=== PATIENT | female | born 1980 | race African-American/Black ===

== ENCOUNTER 2024-07-06 09:24 | Outpatient (CLI) | payer MEDICAID, SELFPAY ==
--- OUTSIDE RECORDS SUMMARY | 2024-07-06 10:16 | XMS_ITS | Referral Summary ---
Author Organization [facility] Address [address] [place] [address] Care Team Providers Care Director Financial Services Name Role Phone Dylan Kimbrough MD Primary Care Provider Allergies No known active allergies Medications ondansetron ODT (ZOFRAN-ODT) 4 mg disintegrating tablet Dissolve 1 tablet oral every 4 hours as needed for nausea or vomiting. 15 tablet Active Social History Tobacco Use Types Packs/Day Years Used Date Smoking Tobacco: Never Assessed Personal Safety Answer Date Recorded Getting School Help Needed Not on file 06/27 Comments No Sex and Gender Information Value Date Recorded Sex Assigned at Not on file Legal Sex Female 12:55 PM LEAD SYSTEMS DEVELOPER Gender Identity Not on file Sexual Orientation Not on file Last Filed Vital Signs Vital Sign Reading Time Taken Comments Blood Pressure 138/85 03/28/2022 5:30 PM LEAD SYSTEMS DEVELOPER Pulse 94 03/28/2022 5:30 PM LEAD SYSTEMS DEVELOPER Temperature 36.8 C (98.2 F) 03/28/2022 1:06 PM LEAD SYSTEMS DEVELOPER Respiratory Rate 18 03/28/2022 5:30 PM LEAD SYSTEMS DEVELOPER Oxygen Saturation 98% 03/28/2022 5:30 PM LEAD SYSTEMS DEVELOPER Inhaled Oxygen Concentration - - Weight 102.1 kg (225 lb) 03/28/2022 1:06 PM LEAD SYSTEMS DEVELOPER Height 165.1 cm (5' 5 ) 03/28/2022 1:06 PM LEAD SYSTEMS DEVELOPER Body Mass Index 37.44 03/28/2022 1:06 PM LEAD SYSTEMS DEVELOPER Plan of Treatment Not on file Procedures Procedure Name Priority Date/Time Associated Diagnosis Comments HEPATITIS PANEL, ACUTE STAT 03/28/2022 4:02 PM LEAD SYSTEMS DEVELOPER from Last 3 Months or Most Recently Relevant to Health Maintenance Results * Hepatitis panel, acute (03/28/2022 4:02 PM LEAD SYSTEMS DEVELOPER) Hep A IgM Nonreactive Nonreactive [facility] Comment: Interpretive Data: If Hep A IgM Ab is reported as Equivocal, a new sample should be drawn in two weeks for testing. Current interpretive data was last revised on 19. Hep B core IgM Nonreactive Nonreactive [facility] Comment: Interpretive Data If HepB Core IgM Ab is reported as Equivocal, a new sample should be drawn in two weeks for testing. Current interpretive data was last revised on 19. Hep C Ab Nonreactive Nonreactive [facility] Comment: Interpretive Data Nonreactive: Antibodies to HCV not detected. Does NOT exclude the possibility of recent exposure to HCV. Equivocal: Equivocal for HCV antibodies. Supplemental molecular testing will be automatically performed to determine infection status in accordance with current CDC screening recommendations. Reactive: Positive for HCV antibodies. This may represent current or past HCV infection. Supplemental molecular testing will be automatically performed to determine current infection status in accordance with current CDC screening recommendations. Interpretive data was last revised on 2019. HepBsAg Nonreactive Nonreactive [facility] Blood 03/28/2022 4:02 PM LEAD SYSTEMS DEVELOPER 03/28/2022 4:30 PM LEAD SYSTEMS DEVELOPER Rafal Woody MD LAB MICROBIOLOGY - GENERAL ORDERABLES Final Result [facility] [address] Department [place] [address] from Last 3 Months or Most Recently Relevant to Health Maintenance Insurance [employer] SIG [id number] Care Teams Director Financial Services Relationship Specialty Start Date End Date Dylan Kimbrough MD [address] [place] [id number] PCP - General Internal Medicine 03/28/22
--- OUTSIDE RECORDS SUMMARY | 2024-07-06 10:16 | XMS_ITS | Clinical Summary ---
Author Organization [facility] Address [address] [place] [address] Care Team Providers Care Manager Fine Dining Name Role Phone Dylan Kimbrough MD Primary [...] on file Legal Sex Female 12:55 PM LIVE HANGER Gender Identity Not on file Sexual Orientation Not on file Last Filed Vital Signs Vital Sign Reading Time Taken Comments Blood Pressure 138/85 03/28/2022 5:30 PM LIVE HANGER Pulse 94 03/28/2022 5:30 PM LIVE HANGER Temperature 36.8 C (98.2 F) 03/28/2022 1:06 PM LIVE HANGER Respiratory Rate 18 03/28/2022 5:30 PM LIVE HANGER Oxygen Saturation 98% 03/28/2022 5:30 PM LIVE HANGER Inhaled Oxygen Concentration - - Weight 102.1 kg (225 lb) 03/28/2022 1:06 PM LIVE HANGER Height 165.1 cm (5' 5 ) 03/28/2022 1:06 PM LIVE HANGER Body Mass Index 37.44 03/28/2022 1:06 PM LIVE HANGER Plan of Treatment Health Maintenance Due Date Last Done Comments Breast Cancer Screening-Mammogram 1979 Depression Screening 1979 Varicella Vaccines (1 of 2 - 13+ 2-dose series) 07/28/1992 Hepatitis B Screening 07/28/1997 Regular Well Visit/Exam 18-64 07/28/1997 Pneumococcal vaccine <65 (1 of 2 - PCV) 07/28/1998 Covid-19 Vaccine (3 - 2023-2 5 season) 2023 03/17/2022, 08/03/2020 Influenza Vaccine (#1) 2023 , 06/08/2019, 01/23/2015 DTaP/Tdap/Td Vaccine (3 - Td or Tdap) 03/17/2032 03/17/2022, 05/24/2010 Hepatitis C Screening Completed 03/28/2022 HPV Vaccines Aged Out No longer eligi ble based on patient's age to complete this topic Procedures Procedure Name Priority Date/Time Associated Diagnosis Comments HEPATITIS PANEL, ACUTE STAT 03/28/2022 4:02 PM LIVE HANGER from Last 3 Months or Most Recently Relevant to Health Maintenance Results * Hepatitis panel, acute (03/28/2022 4:02 PM LIVE HANGER) Hep A IgM Nonreactive Nonreactive [facility] Comment: Interpretive Data: If Hep A IgM Ab is reported as Equivocal, a new sample should be drawn in two weeks for testing. Current interpretive data was last revised on 19. Hep B core IgM Nonreactive Nonreactive [facility] Comment: Interpretive Data If HepB Core IgM Ab is reported as Equivocal, a new sample should be drawn in two weeks for testing. Current interpretive data was last revised on 19. Hep C Ab Nonreactive Nonreactive [facility] Comment: Interpretive Data Nonreactive: Antibodies to [...] last revised on 2019. HepBsAg Nonreactive Nonreactive [facility] Blood 03/28/2022 4:02 PM LIVE HANGER 03/28/2022 4:30 PM LIVE HANGER Rafal Woody MD LAB MICROBIOLOGY - GENERAL ORDERABLES Final Result [facility] [address] Department [place] [address] from Last 3 Months or Most Recently Relevant to Health Maintenance Insurance [employer] SIG [id number] Care Teams Manager Fine Dining Relationship Specialty Start Date End Date Dylan Kimbrough MD [address] [place] [address] PCP - General Internal Medicine 03/28/22
--- OUTSIDE RECORDS SUMMARY | 2024-07-06 10:17 | XMS_ITS | Data Portability ---
Author Organization 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 Plan of Treatment Reminders Order Date Submit Date Provider Last Modified By Organization Details Last Modified Time Details Appointments ANY 15 2024 02:15P M Dylan Kimbrough MD Not available Not available Not available Lab vaginal pathogens panel, FABI+probe , vaginal fluid 2024 025 KENDRICK [facility], [address], [place], [address], 06/28/2024 06:18:02 culture, urine 2024 025 [place], [address], [place], [address], 06/28/2024 06:18:03 urinalysi s, dipstick 2024 025 In-Office Order, Internal Use Only DO Not Attach Compendium DO Not Attach Compendium, Do Not Delete/merge, [id number] 06/23/2024 16:05:21 lipoprote in a, qn, serum 2024 025 [facility], [address], [place], [address], 05/23/2024 17:09:14 HbA1c (hemoglob in A1c), blood 2024 025 [facility], [address], [place], [address], 05/23/2024 17:09:15 HbA1c (hemoglob in A1c), blood 2023 024 [facility], [address], [place], [address], 02/20/2024 08:27:36 vitamin B12, serum 2023 024 [facility], [address], [place], [address], 02/20/2024 08:27:37 vaginal pathogens panel, FABI+probe , vaginal fluid 2023 024 [facility], [address], [place], [address], 01/09/2024 08:32:47 vaginal pathogens panel, FABI+probe , vaginal fluid 2023 024 [facility], [address], [place], [address], 10/11/2023 06:42:23 Referral nutrition ist/dieti gaudencio referral 2024 025 [facility] Computer Animator Nutrition Dietitian, [address], [place], [address], 05/26/2024 16:43:10 gastroent erologist referral 2023 024 KENDRICK Mansfield MD, [address], [place], [address], 06/29/2024 09:04:18 Procedures None recorded. Surgeries None recorded. Imaging electromy ogram + nerve conductio n study 2023 024 [facility]), [address], [place], [address], 06/14/2024 13:54:55 MAMMO, diagnosti c, digital, bilateral - Unilatera l to right breast 2023 024 [facility] ([facility]), [address] [place], [address], 02/10/2024 11:22:06 US, breast, unilatera l - Small mass palpated at 6 o'clock position, measuring about 1cm in diameter. Minimal tendernes s on palpation . [email or web address] ([facility]), [address] [place], [address], 02/11/2024 08:45:03 Medication Orders metronida zole 0.75 % (37.5 mg/5 gram) vaginal gel 2024 025 [id number], [address], [place], [id number], 06/23/2024 16:05:29 amlodipin e 2.5 mg tablet 2024 025 [facility] #51400, [address], [place], [id number], 05/20/2024 10:35:37 hydrochlo rothiazid e 25 mg tablet 2024 025 [facility] #05395, [address], [place], [id number], 05/20/2024 10:35:35 metronida zole 500 mg tablet 2023 024 [facility] #98353, [address], [place], [id number], 02/19/2024 11:35:15 metronida zole 500 mg tablet 2023 024 nidhi [facility] #36833, [address], [place], [id number], 02/19/2024 11:35:05 estradiol 0.01% (0.1 mg/gram) vaginal cream 2023 024 KENDRICK [facility] #38627, [address], [place], [id number], 10/08/2023 13:18:29 Patient TargetsNo targets recorded. Patient Instructions Encounter Date Encounter Id Patient Instructions Last Modified By Organization Details Last Modified Time 10/08/2023 [id number] A healthy lifestyle: care instructions [email or web address] Not available 10/08/2023 13:18:22 --Discussed with Dr. Payton burger Not available 10/19/2023 19:58:44 01/07/2024 [id number] A healthy lifestyle: care instructions [email or web address] Not available 01/07/2024 11:37:[address] Payton burger Not available 01/07/2024 22:56:14 02/19/2024 [id number] body mass index: care instructions [email or web address] Not available 02/19/2024 12:08:58 learning about healthy weight oajao Not available 02/19/2024 12:08:58 neuropathic pain : care instructions oajao Not available 02/19/2024 12:04:52 GI EMG/NCS Labs (Old and new orders) Follow up in 6 months and PRN oajao Not available 02/19/2024 13:27:46 05/20/2024 [id number] body mass index: care instructions oajao Not available 05/20/2024 10:40:14 learning about healthy weight oajao Not available 05/20/2024 10:40:14 Labs Nutritionis t GI follow up for Hepatic steatosis follow up in 6 months and PRN oajao Not available 05/20/2024 14:08:15 06/23/2024 [id number] A healthy lifestyle: care instructions [email or web address] Not available 06/23/2024 16:05:21 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 Referral for Chronic constipation Chronic constipation, HECTOR Referring Physician: Dylan Kimbrough, Internal Medicine, Encounter Date: 02/19/2024 Shipyard Supervisor/dietitian Refer ral for Body mass index 30+ - obesity Referring Physician: Dylan Kimbrough, Internal Medicine, Encounter Date: 05/20/2024 Results Created Date Observation Date Name Description Value Unit Range Abnormal Flag Note LastModifiedBy Organization Detail LastModifiedTime 10/02/19 24 10/03/2023 LIPID PANEL cholesterol, total 210 mg/dL 100-19 9 above high normal Not Available [facility] ([facility]) [address] [place], [address], 10/03/2023 09:23:43 10/02/19 24 10/03/2023 LIPID PANEL triglyceride s 101 mg/dL 0-149 Not Available [facility] ([facility]) [address] [place], [address], 10/03/2023 09:23:43 10/02/19 24 10/03/2023 LIPID PANEL HDL cholesterol 55 mg/dL >39 Not Available [facility] ([facility]) [address] [place], [address], 10/03/2023 09:23:43 10/02/19 24 10/03/2023 LIPID PANEL VLDL cholesterol roc 18 mg/dL 5-40 Not Available [facility] ([facility]) [address] [place], [address], 10/03/2023 09:23:43 10/02/19 24 10/03/2023 LIPID PANEL LDL chol calc ([facility]) 137 mg/dL 0-99 above high normal Not Available [facility] ([facility]) [address] [place], [address], 10/03/2023 09:23:43 10/02/19 24 10/03/2023 COMP. METAB OLIC PANEL (14) glucose 83 mg/dL 70-99 Not Available [facility] ([facility]) [address] [place], [address], 10/03/2023 09:23:45 10/02/19 24 10/03/2023 COMP. METAB OLIC PANEL (14) BUN 10 mg/dL 6-24 Not Available [facility] ([facility]) [address] [facility], [address], 10/03/2023 09:23:45 10/02/19 24 10/03/2023 COMP. METAB OLIC PANEL (14) creatinine 0.91 mg/dL 0.57-1 .00 Not Available [facility] ([facility]) [address] [facility] [place], [address], 10/03/2023 09:23:45 10/02/19 24 10/03/2023 COMP. METAB OLIC PANEL (14) eGFR 80 mL/mi n/1.7 3 >59 Not Available [facility] ([facility]) [address] [facility] [place], [address], 10/03/2023 09:23:45 10/02/19 24 10/03/2023 COMP. METAB OLIC PANEL (14) BUN/creatini ne ratio 11 9-23 Not Available [facility] ([facility]) [address] [facility] [place], [address], 10/03/2023 09:23:45 10/02/19 24 10/03/2023 COMP. METAB OLIC PANEL (14) sodium 142 mmol/ L 134-14 4 Not Available [facility] ([facility]) [address] [facility] [place], [address], 10/03/2023 09:23:45 10/02/19 24 10/03/2023 COMP. METAB OLIC PANEL (14) potassium 3.8 mmol/ L 3.5-5. 2 Not Available [facility] ([facility]) [address] [facility] [place], [address], 10/03/2023 09:23:45 10/02/19 24 10/03/2023 COMP. METAB OLIC PANEL (14) chloride 106 mmol/ L 96-106 Not Available [facility] ([facility]) [address] [place], [address], 10/03/2023 09:23:45 10/02/19 24 10/03/2023 COMP. METAB OLIC PANEL (14) carbon dioxide, total 23 mmol/ L 20-29 Not Available [facility] ([facility]) [address] [place], [address], 10/03/2023 09:23:45 10/02/19 24 10/03/2023 COMP. METAB OLIC PANEL (14) calcium 8.7 mg/dL 8.7-10 .2 Not Available [facility] ([facility]) [address] [place], [address], 10/03/2023 09:23:45 10/02/19 24 10/03/2023 COMP. METAB OLIC PANEL (14) protein, total 6.3 g/dL 6.0-8. 5 Not Available [facility] ([facility]) [address] [place], [address], 10/03/2023 09:23:45 10/02/19 24 10/03/2023 COMP. METAB OLIC PANEL (14) albumin 3.8 g/dL 3.9-4. 9 below low normal Not Available [facility] ([facility]) [address] [place], [address], 10/03/2023 09:23:45 10/02/19 24 10/03/2023 COMP. METAB OLIC PANEL (14) globulin, total 2.5 g/dL 1.5-4. 5 Not Available [facility] ([facility]) [address] [place], [address], 10/03/2023 09:23:45 10/02/19 24 10/03/2023 COMP. METAB OLIC PANEL (14) A/G ratio 1.5 1.2-2. 2 Not Available [facility] ([facility]) [address] [place], [address], 10/03/2023 09:23:45 10/02/19 24 10/03/2023 COMP. METAB OLIC PANEL (14) bilirubin, total 0.4 mg/dL 0.0-1. 2 Not Available [facility] ([facility]) [address] [place], [address], 10/03/2023 09:23:45 10/02/19 24 10/03/2023 COMP. METAB OLIC PANEL (14) alkaline phosphatase 72 IU/L 44-121 Not Available [facility] ([facility]) [address] [place], [address], 10/03/2023 09:23:45 10/02/19 24 10/03/2023 COMP. METAB OLIC PANEL (14) AST (SGOT) 17 IU/L 0-40 Not Available [facility] ([facility]) [address] [place], [address], 10/03/2023 09:23:45 10/02/19 24 10/03/2023 COMP. METAB OLIC PANEL (14) ALT (SGPT) 18 IU/L 0-32 Not Available [facility] ([facility]) [address] [place], [address], 10/03/2023 09:23:45 10/02/19 24 10/03/2023 IRON AND TIBC iron bind.cap.(TI BC) 290 ug/dL 250-45 0 Not Available [facility] ([facility]) [address] [place], [address], 10/03/2023 09:23:46 10/02/19 24 10/03/2023 IRON AND TIBC UIBC 226 ug/dL 131-42 5 Not Available [facility] ([facility]) [address] [place], [address], 10/03/2023 09:23:46 10/02/19 24 10/03/2023 IRON AND TIBC iron 64 ug/dL 27-159 Not Available [facility] ([facility]) [address] [place], [address], 10/03/2023 09:23:46 10/02/19 24 10/03/2023 IRON AND TIBC iron saturation 22 % 15-55 Not Available [facility] ([facility]) [address] [place], [address], 10/03/2023 09:23:46 10/02/19 24 10/03/2023 EDWIN TIN ferritin 189 NG/mL 15-150 above high normal Not Available [facility] ([facility]) [address] [place], [address], 10/03/2023 09:23:48 10/02/19 24 10/03/2023 CBC WITH DIFFE RENTI AL/PL ATELE T WBC 9.8 x10e3 /uL 3.4-10 .8 Not Available [facility] ([facility]) [address] [place], [address], 10/03/2023 09:23:49 10/02/19 24 10/03/2023 CBC WITH DIFFE RENTI AL/PL ATELE T RBC 4.12 x10e6 /uL 3.77-5 .28 Not Available [facility] ([facility]) [address] [place], [address], 10/03/2023 09:23:49 10/02/19 24 10/03/2023 CBC WITH DIFFE RENTI AL/PL ATELE T hemoglobin 11.6 g/dL 11.1-1 5.9 Not Available [facility] ([facility]) [address] [place], [address], 10/03/2023 09:23:49 10/02/19 24 10/03/2023 CBC WITH DIFFE RENTI AL/PL ATELE T hematocrit 35.8 % 34.0-4 6.6 Not Available [facility] ([facility]) [address] [facility], [place], [address], 10/03/2023 09:23:49 10/02/19 24 10/03/2023 CBC WITH DIFFE RENTI AL/PL ATELE T MCV 87 fL 79-97 Not Available [facility] ([facility]) [address] [facility], [place], [address], 10/03/2023 09:23:49 10/02/19 24 10/03/2023 CBC WITH DIFFE RENTI AL/PL ATELE T MCH 28.2 pg 26.6-3 3.0 Not Available [facility] ([facility]) [address] [facility], [place], [address], 10/03/2023 09:23:49 10/02/19 24 10/03/2023 CBC WITH DIFFE RENTI AL/PL ATELE T MCHC 32.4 g/dL 31.5-3 5.7 Not Available [facility] ([facility]) [address] [facility], [place], [address], 10/03/2023 09:23:49 10/02/19 24 10/03/2023 CBC WITH DIFFE RENTI AL/PL ATELE T RDW 13.5 % 11.7-1 5.4 Not Available [facility] ([facility]) [address] [facility], [place], [address], 10/03/2023 09:23:49 10/02/19 24 10/03/2023 CBC WITH DIFFE RENTI AL/PL ATELE T platelets 323 x10e3 /uL 150-45 0 Not Available [facility] ([facility]) [address] [place], [address], 10/03/2023 09:23:49 10/02/19 24 10/03/2023 CBC WITH DIFFE RENTI AL/PL ATELE T neutrophils 70 % notest ab. Not Available [facility] ([facility]) [address] [facility], [place], [address], 10/03/2023 09:23:49 10/02/19 24 10/03/2023 CBC WITH DIFFE RENTI AL/PL ATELE T lymphs 22 % notest ab. Not Available [facility] ([facility]) [address] [facility], [place], [address], 10/03/2023 09:23:49 10/02/19 24 10/03/2023 CBC WITH DIFFE RENTI AL/PL ATELE T monocytes 5 % notest ab. Not Available [facility] ([facility]) [address] [facility], [place], [address], 10/03/2023 09:23:49 10/02/19 24 10/03/2023 CBC WITH DIFFE RENTI AL/PL ATELE T eos 1 % notest ab. Not Available [facility] ([facility]) [address] [facility], [place], [address], 10/03/2023 09:23:49 10/02/19 24 10/03/2023 CBC WITH DIFFE RENTI AL/PL ATELE T basos 1 % notest ab. Not Available [facility] ([facility]) [address] [facility], [place], [address], 10/03/2023 09:23:49 10/02/19 24 10/03/2023 CBC WITH DIFFE RENTI AL/PL ATELE T neutrophils (absolute) 7.0 x10e3 /uL 1.4-7. 0 Not Available [facility] ([facility]) [address] [facility], [place], [address], 10/03/2023 09:23:49 10/02/19 24 10/03/2023 CBC WITH DIFFE RENTI AL/PL ATELE T lymphs (absolute) 2.2 x10e3 /uL 0.7-3. 1 Not Available [facility] ([facility]) [address] [facility], [place], [address], 10/03/2023 09:23:49 10/02/19 24 10/03/2023 CBC WITH DIFFE RENTI AL/PL ATELE T monocytes(ab solute) 0.5 x10e3 /uL 0.1-0. 9 Not Available [facility] ([facility]) [address] [facility], [place], [address], 10/03/2023 09:23:49 10/02/19 24 10/03/2023 CBC WITH DIFFE RENTI AL/PL ATELE T eos (absolute) 0.1 x10e3 /uL 0.0-0. 4 Not Available [facility] ([facility]) [address] [facility], [place], [address], 10/03/2023 09:23:49 10/02/19 24 10/03/2023 CBC WITH DIFFE RENTI AL/PL ATELE T baso (absolute) 0.1 x10e3 /uL 0.0-0. 2 Not Available [facility] ([facility]) [address] [facility], [place], [address], 10/03/2023 09:23:49 10/02/19 24 10/03/2023 CBC WITH DIFFE RENTI AL/PL ATELE T immature granulocytes 1 % notest ab. Not Available [facility] ([facility]) [address] [place], [address], 10/03/2023 09:23:49 10/02/19 24 10/03/2023 CBC WITH DIFFE RENTI AL/PL ATELE T immature grans (abs) 0.1 x10e3 /uL 0.0-0. 1 Not Available [facility] ([facility]) [address] [place], [address], 10/03/2023 09:23:49 10/08/19 24 10/10/2023 NUSWA B VAGIN ITIS PLUS (VG+) atopobium vaginae HIGH - 2 score abnormal Not Available [facility] ([facility]) [address] [place], [address], 10/11/2023 06:42:22 10/08/19 24 10/10/2023 NUA B VAGIN ITIS PLUS (VG+) bvab 2 LOW - 0 score Not Available [facility] ([facility]) [address] [place], [address], 10/11/2023 06:42:22 10/08/19 24 10/10/2023 NUA B VAGIN ITIS PLUS (VG+) megasphaera 1 LOW - 0 score Calcu late total score by stacia g the 3 indiv idual bacte rial vagin osis (BV) marke r score s toget her. Total score is inter prete d as follo ws: Total score 0-1: Indic ates the absen ce of BV. Total score 2: Indet ermin ate for BV. Addit ional clini roc data shoul d be evalu ated to estab marcelina a diagn osis. Total score 3-6: Indic ates the prese nce of BV. Not Available [facility] ([facility]) [address] [place], [address], 10/11/2023 06:42:22 10/08/19 24 10/10/2023 NUA B VAGIN ITIS PLUS (VG+) kanika albicans, FABI NEGATI VE negati ve Not Available [facility] ([facility]) [address] [place], [address], 10/11/2023 06:42:22 10/08/19 24 10/10/2023 NUA B VAGIN ITIS PLUS (VG+) kanika glabrata, FABI NEGATI VE negati ve Not Available [facility] ([facility]) [address] [place], [address], 10/11/2023 06:42:22 10/08/19 24 10/10/2023 NUA B VAGIN ITIS PLUS (VG+) trich vag by FABI NEGATI VE negati ve Not Available [facility] ([facility]) [address] [facility], [place], [address], 10/11/2023 06:42:22 10/08/19 24 10/10/2023 NUA B VAGIN ITIS PLUS (VG+) chlamydia trachomatis, FABI NEGATI VE negati ve Not Available [facility] ([facility]) [address] [facility], [place], [address], 10/11/2023 06:42:22 10/08/19 24 10/10/2023 NUA B VAGIN ITIS PLUS (VG+) neisseria gonorrhoeae, FABI NEGATI VE negati ve Not Available [facility] ([facility]) [address] [facility], [place], [address], 10/11/2023 06:42:22 01/07/20 24 01/08/2024 NUA B VAGIN ITIS PLUS (VG+) atopobium vaginae LOW - 0 score Not Available [facility] ([facility]) [address] [facility], [place], [address], 01/09/2024 08:32:47 01/07/20 24 01/08/2024 NUA B VAGIN ITIS PLUS (VG+) bvab 2 LOW - 0 score Not Available [facility] ([facility]) [address] [place], [address], 01/09/2024 08:32:47 01/07/20 24 01/08/2024 NUA B VAGIN ITIS PLUS (VG+) megasphaera 1 LOW - 0 score Calcu late total score by stacia rodriguez the 3 indiv idual bacte rial vagin osis (BV) marke r score s toget her. Total score is inter prete d as follo ws: Total score 0-1: Indic ates the absen ce of BV. Total score 2: Indet ermin ate for BV. Addit ional clini roc data shoul d be evalu ated to estab marcelina a diagn osis. Total score 3-6: Indic ates the prese nce of BV. Not Available [facility] ([facility]) [address] [facility], [place], [address], 01/09/2024 08:32:47 01/07/20 24 01/08/2024 NUSWA B VAGIN ITIS PLUS (VG+) kanika albicans, FABI NEGATI VE negati ve Not Available [facility] ([facility]) [address] [place], [address], 01/09/2024 08:32:47 01/07/20 24 01/08/2024 NUSWA B VAGIN ITIS PLUS (VG+) kanika glabrata, FABI NEGATI VE negati ve Not Available [facility] ([facility]) [address] [place], [address], 01/09/2024 08:32:47 01/07/20 24 01/09/2024 NUSWA B VAGIN ITIS PLUS (VG+) trich vag by FABI NEGATI VE negati ve Not Available [facility] ([facility]) [address] [place], [address], 01/09/2024 08:32:47 01/07/20 24 01/09/2024 NUSWA B VAGIN ITIS PLUS (VG+) chlamydia trachomatis, FABI NEGATI VE negati ve Not Available [facility] ([facility]) [address] [place], [address], 01/09/2024 08:32:47 01/07/20 24 01/09/2024 NUSWA B VAGIN ITIS PLUS (VG+) neisseria gonorrhoeae, FABI NEGATI VE negati ve Not Available [facility] ([facility]) [address] [facility], [place], [address], 01/09/2024 08:32:47 02/19/2002/20/2024 HEMOG LOBIN A1C hemoglobin A1C 5.4 % 4.8-5. 6 Predi abete s: 5.7 - 6.4 Diabe chandrika: >6.4 Glyce lin contr ol for adult s with diabe chandrika: <7.0 Not Available [facility] ([facility]) [address] [facility], [place], [address], 02/20/2024 08:27:36 02/19/2002/20/2024 VITAM IN B12 vitamin B12 382 pg/mL 232-12 45 Not Available [facility] ([facility]) [address] [facility], [place], [address], 02/20/2024 08:27:37 02/19/2002/20/2024 LIPID PANEL cholesterol, total 263 mg/dL 100-19 9 above high normal Not Available [facility] ([facility]) [address] [place], [address], 02/20/2024 08:27:39 02/19/2002/20/2024 LIPID PANEL triglyceride s 164 mg/dL 0-149 above high normal Not Available [facility] ([facility]) [address] [place], [address], 02/20/2024 08:27:39 02/19/2002/20/2024 LIPID PANEL HDL cholesterol 62 mg/dL >39 Not Available [facility] ([facility]) [address] [place], [address], 02/20/2024 08:27:39 02/19/2002/20/2024 LIPID PANEL VLDL cholesterol roc 30 mg/dL 5-40 Not Available [facility] ([facility]) [address] [place], [address], 02/20/2024 08:27:39 02/19/2002/20/2024 LIPID PANEL LDL chol calc ([facility]) 171 mg/dL 0-99 above high normal Not Available [facility] ([facility]) [address] [place], [address], 02/20/2024 08:27:39 02/19/2002/20/2024 BASIC METAB OLIC PANEL (7) glucose 80 mg/dL 70-99 Not Available [facility] ([facility]) [address] [place], [address], 02/20/2024 08:27:40 02/19/2002/20/2024 BASIC METAB OLIC PANEL (7) BUN 11 mg/dL 6-24 Not Available [facility] ([facility]) [address] [place], [address], 02/20/2024 08:27:40 02/19/2002/20/2024 BASIC METAB OLIC PANEL (7) creatinine 0.92 mg/dL 0.57-1 .00 Not Available [facility] ([facility]) [address] [place], [address], 02/20/2024 08:27:40 02/19/2002/20/2024 BASIC METAB OLIC PANEL (7) eGFR 79 mL/mi n/1.7 3 >59 Not Available [facility] ([facility]) [address] [place], [address], 02/20/2024 08:27:40 02/19/2002/20/2024 BASIC METAB OLIC PANEL (7) BUN/creatini ne ratio 12 9-23 Not Available [facility] ([facility]) [address] [place], [address], 02/20/2024 08:27:40 02/19/2002/20/2024 BASIC METAB OLIC PANEL (7) sodium 140 mmol/ L 134-14 4 Not Available [facility] ([facility]) [address] [facility] [place], [address], 02/20/2024 08:27:40 02/19/2002/20/2024 BASIC METAB OLIC PANEL (7) potassium 4.1 mmol/ L 3.5-5. 2 Not Available [facility] ([facility]) [address] [place], [address], 02/20/2024 08:27:40 02/19/2002/20/2024 BASIC METAB OLIC PANEL (7) chloride 103 mmol/ L 96-106 Not Available [facility] ([facility]) [address] [place], [address], 02/20/2024 08:27:40 02/19/2002/20/2024 BASIC METAB OLIC PANEL (7) carbon dioxide, total 25 mmol/ L 20-29 Not Available [facility] ([facility]) [address] [place], [address], 02/20/2024 08:27:40 02/19/2002/20/2024 AST (SGOT ) AST (SGOT) 17 IU/L 0-40 Not Available [facility] ([facility]) [address] [place], [address], 02/20/2024 08:27:41 02/19/2002/20/2024 ALT (SGPT ) ALT (SGPT) 18 IU/L 0-32 Not Available [facility] ([facility]) [address] [place], [address], 02/20/2024 08:27:41 02/19/2002/20/2024 GGT GGT 80 IU/L 0-60 above high normal Not Available [facility] ([facility]) [address] [place], [address], 02/20/2024 08:27:42 02/19/2002/20/2024 TSH TSH 1.210 uIU/m L 0.450- 4.500 Not Available [facility] ([facility]) [address] [place], [address], 02/20/2024 08:27:43 02/19/2002/20/2024 HGB+H CT hemoglobin 13.1 g/dL 11.1-1 5.9 Not Available [facility] ([facility]) [address] [place], [address], 02/20/2024 08:27:43 02/19/2002/20/20[address]GB[address]H [address] hematocrit 40.5 % 34.0-4 6.6 Not Available [facility] ([facility]) [address] [facility], [place], [address], 02/20/2024 08:27:43 05/20/1905/23/2024 LIPOP ROTEI N (A) lipoprotein (A) 156.3 nmol/ L <75.0 above high normal Note: Value s great er than or equal to 75.0 nmol/ L may indic ate an indep enden t risk facto r for CHD, but must be evalu ated with cauti on when appli ed to non-C aucas manjit popul ation s due to the influ ence of susi ic facto rs on Lp(a) acros s ethni citie s. Not Available [facility] ([facility]) [address] [facility], [place], [address], 05/23/2024 17:09:14 05/20/1905/20/2024 HEMOG LOBIN A1C hemoglobin A1C 5.3 % 4.8-5. 6 Predi abete s: 5.7 - 6.4 Diabe chandrika: >6.4 Glyce lin contr ol for adult s with diabe chandrika: <7.0 Not Available [facility] ([facility]) [address] [place], [address], 05/23/2024 17:09:15 06/23/19 25 06/23/2024 urina lysis , dipst ick Leukocytes Negati ve Not Available In-Office Order Internal Use Only DO Not Attach Compendium DO Not Attach Compendium, Do Not Delete/merge, 06/23/2024 16:02:35 06/23/19 25 06/23/2024 urina lysis , dipst ick Nitrite negati ve Not Available In-Office Order Internal Use Only DO Not Attach Compendium DO Not Attach Compendium, Do Not Delete/merge, 06/23/2024 16:02:35 06/23/19 25 06/23/2024 urina lysis , dipst ick Urobilinogen .2 Not Available In-Of fice Order Internal Use Only DO Not Attach Compendium DO Not Attach Compendium, Do Not Delete/merge, 06/23/2024 16:02:35 06/23/19 25 06/23/2024 urina lysis , dipst ick Protein Negati ve Not Available In-Office Order Internal Use Only DO Not Attach Compendium DO Not Attach Compendium, Do Not Delete/merge, 06/23/2024 16:02:35 06/23/19 25 06/23/2024 urina lysis , dipst ick pH 6.0 Not Available In-Office Order Internal Use Only DO Not Attach Compendium DO Not Attach Compendium, Do Not Delete/merge, 06/23/2024 16:02:35 06/23/19 25 06/23/2024 urina lysis , dipst ick Blood Hemoly zed: Trace Not Available In-Office Order Internal Use Only DO Not Attach Compendium DO Not Attach Compendium, Do Not Delete/merge, 06/23/2024 16:02:35 06/23/19 25 06/23/2024 urina lysis , dipst ick Specific [place] 1.020 Not Available In-Off ice Order Internal Use Only DO Not Attach Compendium DO Not Attach Compendium, Do Not Delete/merge, 06/23/2024 16:02:35 06/23/19 25 06/23/2024 urina lysis , dipst ick Ketone Negati ve Not Available In-Office Order Internal Use Only DO Not Attach Compendium DO Not Attach Compendium, Do Not Delete/merge, [id number] 06/23/2024 16:02:35 06/23/19 25 06/23/2024 urina lysis , dipst ick Bilirubin Negati ve Not Available In-Office Order Internal Use Only DO Not Attach Compendium DO Not Attach Compendium, Do Not Delete/merge, 06/23/2024 16:02:35 06/23/19 25 06/23/2024 urina lysis , dipst ick Glucose Negati ve Not Available In-Office Order Internal Use Only DO Not Attach Compendium DO Not Attach Compendium, Do Not Delete/merge, 06/23/2024 16:02:35 06/23/19 25 06/23/2024 urina lysis , dipst ick Appearance Clear Not Available In-Offi ce Order Internal Use Only DO Not Attach Compendium DO Not Attach Compendium, Do Not Delete/merge, 06/23/2024 16:02:35 06/23/19 25 06/23/2024 urina lysis , dipst ick Color Yellow Not Available In-Office Order Internal Use Only DO Not Attach Compendium DO Not Attach Compendium, Do Not Delete/merge, 06/23/2024 16:02:35 02/10/20 24 02/10/2024 MAMMO , diagn ostic , digit al, bilat eral No observ ation record ed. [facility] [address] [place], [address], 02/15/2024 17:50:03 02/10/20 24 02/10/2024 US, breas t, unila teral No observ ation record ed. [facility] [address] [place], [address], 02/15/2024 17:50:03 Result Notes None recorded. 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 Not Available [facility] 3 14:16:15 History of total hysterect luz 593013889 Active 2018 Not Available [facility] 3 14:16:15 Chronic vaginitis 27513398 Active 2018 Not Available [facility] 3 14:16:15 Recurrent bacterial infection 703194090 Active 2018 Not Available [facility] 3 14:16:15 Pulmonary function studies abnormal 715074505 Active 2019 Not Available [facility] 3 14:16:15 Chronic idiopathi c constipat ion 10055895 Active 2020 Not Available [facility] 3 14:16:16 Cough variant asthma 563334108 Active 2021 Not Available [facility] 3 14:16:15 Apnea 6999516 Active 2021 Not Available [facility] 3 14:16:15 SARS-CoV- 2 antigen vaccine declined 8658446561 Active 2022 Not Available [facility] 3 14:16:15 Obstructi ve sleep apnea syndrome 71116388 Active 2022 Dylan Kimbrough MD Attn: Accounting ,[address] [place], [address] , [place] [facility] 3 11:38:39 Essential hypertens ion 16001247 Active 2023 Brandan Carcamo [place] null, [place] [facility] 4 10:39:57 Asthma 264904234 Active 2023 Brandan Carcam[place], [place] [facility] 4 10:39:58 Serum iron below reference range 967517032 Active 2023 Brandan Carcamo [place], [place] [facility] 4 10:39:59 Nonalcoho lic steatohep atitis 965045503 Active 2023 Dylan Kimbrough MD Attn: Accounting ,[address] [place], [address] , [place] [facility] 4 13:27:46 Acute lower urinary tract infection 396587384 Completed 06/01/2019 KEITH Krueger [facility] 0 11:46:16 Vaginitis 17350382 Active Not Available [facility] 3 14:16:15 Bacterial vaginosis 080973459 Active Not Available [facility] 3 14:16:15 Candidias is 22033626 Completed 06/01/2019 KEITH Krueger [facility] 0 11:46:24 Pneumonia 740537665 Completed 06/01/2019 KEITH Krueger [facility] 0 11:46:41 Overweigh t 852933572 Active Not Available [facility] 3 14:16:15 Anemia 961161386 Active Not Available [facility] 3 14:16:15 Disorder of foot 138561504 Active Not Available [facility] 3 14:16:15 Pain of breast 03412977 Completed 06/01/2019 KEITH Krueger [facility] 0 11:46:38 Hyperlipi demia 22320503 Active Not Available [facility] 3 14:16:15 Acute urinary tract infection 567893086 Completed 06/01/2019 KEITH Krueger [facility] 0 11:46:19 Disorder of lipid metabolis m 428619593 Active Not Available [facility] 3 14:16:15 Pruritus of vagina 67247150 Completed 06/01/2019 KEITH Krueger [facility] 0 11:46:47 Infection by Trichomon as 73027984 Active Not Available [facility] 3 14:16:15 Candidias is of vagina 07103057 Active Not Available [facility] 3 14:16:15 Vulvitis 42200756 Active Not Available [facility] 3 14:16:15 Constipat ion 52332837 Completed 06/01/2019 KEITH Krueger [facility] 0 11:46:28 Problem Notes None recorded. Procedures Surgical History Date Name Laterality Status Provider Name and Address Organization Details Recorded Time 06/04/19 23 Date of Last Mammogram completed Dinora Andrews MA [facility] 10/15/2022 15:14:17 06/04/19 23 excision of subcutaneous neoplasm of foot completed Dinora Andrews MA [facility] 10/15/2022 15:12:05 06/26/19 17 Date of Last Pap Smear completed Marlys Pryor MA [facility] 06/25/2016 16:18:44 04/27/19 15 Total hysterectomy completed CHET NUNEZ Attn: Accounting,[address] [facility], [place], [address], [facility] 12/24/2022 12:36:18 04/27/19 11 Tubal Ligation completed Jazmin Gay MA [facility] 08/09/2014 11:59:15 04/27/18 87 Tonsillectomy completed Jazmin Gay MA [facility] 08/09/2014 11:59:15 Imaging Results Imaging Date Name Status LastModified by Organiz ation Details LastModified Time 02/10/2024 MAMMO, diagnostic, digital, bilateral completed [facility] [address] [place], [address], 02/15/2024 17:50:03 02/10/2024 US, breast, unilateral completed [facility] [address] [place], [address], 02/15/2024 17:50:03 Procedure Notes None recorded. Medical Equipment None Reported. Allergies Allergen ID Allergen Name Allergen Category Reaction Reaction Severity Criticality Documentation Date Start Date Code Code System Note Provider Name and Address Organization Details Recorded Time 096909 No known allergy (situatio n) Not available Not available Not available Not available 02/26/2023 20058 6003 SNOMED Not Available Not Available Not Available No known drug allergies Medications Name Sig Start Date Stop Date Status Note LastModified by Organization Details LastModified Time multivita min tablet TAKE 1 TABLET BY MOUTH EVERY DAY 03/12 completed Not Available Not Available Not Available bupropion HCl SR 150 mg tablet,12 hr sustained -release TAKE ONE TABLET BY MOUTH TWICE DAILY 06/15 completed Not Available Not Available Not Available promethaz ine-DM 6.25 mg-15 mg/5 mL oral syrup Take 5 mL every 4 hours by oral route for 7 days. 06/08 completed Not Available Not Available Not Available prednison e 10 mg tablet TAKE 3 TABLETS BY MOUTH EVERY DAY FOR 5 DAYS DIRECTED 07/04 completed Not Available Not Available Not Available doxycycli ne hyclate 100 mg capsule TAKE 1 CAPSULE BY MOUTH TWICE DAILY FOR 10 DAYS 10/06 completed Not Available Not Available Not Available atorvasta tin 20 mg tablet 07/06 completed Not Available Not Available Not Available cetirizin e 10 mg tablet Take 1 tablet every day by oral route. 03/12 completed Not Available Not Available Not Available atorvasta tin 10 mg tablet Take 2 tablets every day by oral route as directed for 30 days. 06/15 completed Not Available Not Available Not Available ibuprofen 800 mg tablet TAKE 1 TABLET BY MOUTH EVERY 6 TO 8 HOURS NEEDED FOR PAIN 10/06 completed Not Available Not Available Not Available fluconazo le 150 mg tablet TAKE 1 TABLET BY MOUTH EVERY DAY FOR 1 DAY 05/20 completed Not Available Not Available Not Available meloxicam 15 mg tablet TAKE 1 TABLET BY MOUTH EVERY DAY 10/01 completed PRN Not Available Not Available Not Available naltrexon e 50 mg tablet Take 1 tablet every day by oral route. 06/15 completed Not Available Not Available Not Available metronida zole 0.75 % (37.5 mg/5 gram) vaginal gel INSERT ONE APPLICAT ORFUL VAGINALL Y AT BEDTIME [id number] active Not Available Not Available No t Available famotidin e 40 mg tablet TAKE ONE-HALF TABLET BY MOUTH EVERY DAY 03/17 completed Not Available Not Available Not Available terconazo le 0.8 % vaginal cream INSERT 1 APPLICAT ORFUL VAGINALL Y EVERY DAY AT BEDTIME FOR 3 DAYS 07/13 completed Not Available Not Available Not Available Cleocin 100 mg vaginal supposito ry INSERT ONE APPLICAT ORFUL VAGINALL Y AT BEDTIME 07/13 completed Not Available Not Available Not Available Zithromax Z-Mike 250 mg tablet TAKE 2 TABLETS (500 MG) BY ORAL ROUTE ONCE DAILY FOR 1 DAY THEN 1 TABLET (250 MG) BY ORAL ROUTE ONCE DAILY FOR 4 DAYS 07/06 completed Not Available Not Available Not Available penicilli n V potassium 500 mg tablet TAKE 1 TABLET BY MOUTH TWICE DAILY FOR 10 DAYS 07/13 completed Not Available Not Available Not Available amlodipin e 2.5 mg tablet TAKE 1 TABLET BY MOUTH EVERY DAY AT BEDTIME FOR HYPERTEN LARRY active Not Available Not Available No t Available metronida zole 500 mg tablet TAKE 1 TABLET BY MOUTH TWICE DAILY FOR 10 DAYS 02/18 completed Not Available Not Available Not Available estradiol -norethin drone acet 1 mg-0.5 mg tablet TAKE 1 TABLET BY MOUTH EVERY DAY 08/06 completed Not Available Not Available Not Available sulfameth oxazole 800 mg-trimet hoprim 160 mg tablet TAKE 1 TABLET BY MOUTH EVERY 12 HOURS FOR 7 DAYS active Not Available Not Available No t Available omeprazol e 40 mg capsule,d elayed release TAKE 1 CAPSULE BY MOUTH EVERY DAY DIRECTED active Not Available Not Available No t Available doxycycli ne monohydra te 100 mg tablet Take 1 tablet twice a day by oral route as directed for 7 days. 08/14 completed Not Available Not Available Not Available triamcino lone acetonide 0.1 % topical cream APPLY A THIN LAYER TO THE AFFECTED AREA(S) BY TOPICAL ROUTE 2 TIMES PER DAY 10/24 completed Not Available Not Available Not Available oxycodone -acetamin ophen 5 mg-325 mg tablet TAKE 1-2 TABLETS BY MOUTH EVERY 4 HOURS NEEDED FOR PAIN 05/20 completed Not Available Not Available Not Available famotidin e 20 mg tablet TAKE 1 TABLET BY MOUTH TWICE DAILY 03/12 completed Not Available Not Available Not Available amitripty line 25 mg tablet TAKE 1 TABLET BY MOUTH EVERY DAY AT BEDTIME 10/01 completed Not Available Not Available Not Available benzonata te 100 mg capsule Take 1 capsule 3 times a day by oral route as needed for 7 days. 04/16 completed Not Available Not Available Not Available doxycycli ne monohydra te 100 mg capsule TAKE 1 CAPSULE BY MOUTH TWICE DAILY FOR 10 DAYS 07/13 completed Not Available Not Available Not Available hydrocodo ne 7.5 mg-acetam inophen 325 mg tablet TAKE 1 TABLET BY MOUTH EVERY 4 HOURS NEEDED FOR PAIN 02/26 completed Not Available Not Available Not Available simvastat in 20 mg tablet Take 1 tablet every day by oral route. 10/24 completed Not Available Not Available Not Available Cipro 500 mg tablet Take 1 tablet every 12 hours by oral route for 10 days. 04/01 completed Not Available Not Available Not Available tobramyci n 0.3 % eye drops 06/15 completed Not Available Not Available Not Available sertralin e 25 mg tablet Take 1 tablet every day by oral route for 30 days. 07/13 completed Not Available Not Available Not Available enoxapari n 150 mg/mL subcutane ous syringe INJECT 1 ML UNDER THE SKIN ONCE DAILY X4DAYS active Not Available Not Available No t Available monteluka st 10 mg tablet TAKE 1 TABLET BY MOUTH EVERY DAY DIRECTED 10/01 completed Not Available Not Available Not Available hydrochlo rothiazid e 25 mg tablet TAKE 1 TABLET BY MOUTH EVERY DAY DIRECTED FOR HYPERTEN LARRY active Not Available Not Available No t Available fluticaso ne 100 mcg-salme terol 50 mcg/dose blistr powdr for inhalatio n INHALE 1 PUFF BY MOUTH TWICE DAILY 10/01 completed Not Available Not Available Not Available levofloxa susan 500 mg tablet 10/24 completed Not Available Not Available Not Available oxycodone -acetamin ophen 7.5 mg-325 mg tablet TAKE 1 TABLET BY MOUTH EVERY 6 HOURS FOR 5 DAYS 05/20 completed Not Available Not Available Not Available estradiol 0.01% (0.1 mg/gram) vaginal cream INSERT 0.5 GRAM VAGINALL Y 2 TIMES A WEEK active Not Available Not Available No t Available methylpre dnisolone 4 mg tablets in a dose pack FOLLOW PACKAGE DIRECTIO NS 10/01 completed Not Available Not Available Not Available albuterol sulfate HFA 90 mcg/actua tion aerosol inhaler INHALE 1 PUFF BY MOUTH EVERY 4 HOURS NEEDED active Not Available Not Available No t Available ipratropi um bromide 42 mcg (0.06 %) nasal spray USE 1 SPRAY IN EACH NOSTRIL FOUR TIMES DAILY NEEDED 10/01 completed Not Available Not Available Not Available ondansetr on 4 mg disintegr ating tablet DISSOLVE 1 TABLET BY MOUTH EVERY 4 HOURS NEEDED FOR NAUSEA OR VOMITTIN G 05/02 completed Not Available Not Available Not Available cefdinir 300 mg capsule TAKE 1 CAPSULE BY MOUTH EVERY 12 HOURS FOR 10 DAYS 10/01 completed Not Available Not Available Not Available fluticaso ne propionat e 50 mcg/actua tion nasal spray,[employer] [place] 1 spray every day by intranas al route for 30 days. 06/08 completed Not Available Not Available Not Available dicyclomi ne 10 mg capsule 10/24 completed Not Available Not Available Not Available loratadin e 10 mg tablet Take 1 tablet every day by oral route for 30 days. 06/08 completed Not Available Not Available Not Available amoxicill in 875 mg-[place] ium clavulana te 125 mg tablet 12/13 completed Not Available Not Available Not Available [place] 500 mg capsule Take 1 capsule every day by oral route at bedtime. 10/24 completed Not Available Not Available Not Available ezetimibe 10 mg tablet TAKE 1 TABLET BY MOUTH EVERY DAY AT BEDTIME active Not Available Not Available No t Available nitrofura ntoin monohydra te/macroc rystals 100 mg capsule TAKE 1 CAPSULE BY MOUTH EVERY 12 HOURS FOR 7 DAYS 07/04 completed Not Available Not Available Not Available lactulose 10 gram/15 mL oral solution active Not Available Not Available Not Available RepHresh vaginal gel Insert 2 g twice a week by vaginal route. 07/06 completed Not Available Not Available Not Available Oysco 500/D 500 mg-5 mcg (200 unit) tablet 04/16 completed Not Available Not Available Not Available hydrochlo rothiazid e 12.5 mg tablet TAKE 1 TABLET BY MOUTH EVERY DAY DIRECTED 07/13 completed Not Available Not Available Not Available Symbicort 160 mcg-4.5 mcg/actua tion HFA aerosol inhaler Inhale 2 puffs twice a day by inhalati on route as directed for 30 days. 04/08 completed Channged to Flu/Durga Not Available Not Available Not Available Calcium with Vitamin D 600 mg-10 mcg (400 unit) tablet Take 1 tablet twice a day by oral route. 03/12 completed Not Available Not Available Not Available vitamin E (dl, acetate) 180 mg (400 unit) capsule Take 1 capsule twice a day by oral route. 10/24 completed Not Available Not Available Not Available RepHresh Pro-B 2.5 billion cell capsule Take 1 capsule every day by oral route. 06/25 completed Not Available Not Available Not Available lactulose 10 gram/15 mL (15 mL) oral solution Take 15 mL every day by oral route. 01/23 completed Not Available Not Available Not Available calcium 600 mg (as carbonate )-vitamin D3 20 mcg (800 unit) tablet Take 1 tablet twice a day by oral route. 07/06 completed Not Available Not Available Not Available Linzess 145 mcg capsule TAKE 1 CAPSULE BY MOUTH EVERY DAY 03/12 completed Not Available Not Available Not Available Phexxi 1.8 %-1 %-0.4 % vaginal gel INSERT 1 APPLICAT OR VAGINALL Y IF NEEDED ONCE EVERY DAY 03/17 completed Not Available Not Available Not Available Vitals Date Recorded Body height Body mass index (BMI) Body weight Oxygen saturation Oxygen saturation in Arterial blood by Pulse oximetry Heart rate Systolic blood pressure Diastolic blood pressure Provider Name and Address Organization Details Last Updated DateTime 4 165.1 cm 36.7 kg/m2 928062. 84 g 96 % 96 % 76 /min 124 mm[Hg] 78 mm[Hg] Sanjuanita Smart [place] [facility] 4 12:52:37 Date Recorded Body height Body mass index (BMI) Body weight Oxygen saturation Oxygen saturation in Arterial blood by Pulse oximetry Heart rate Systolic blood pressure Diastolic blood pressure Provider Name and Address Organization Details Last Updated DateTime 4 165.1 cm 37.2 kg/m2 324896. 97 g 97 % 97 % 90 /min 128 mm[Hg] 82 mm[Hg] Sanjuanita Smart [place] [facility] 4 10:57:11 Date Recorded Body height Body mass index (BMI) Body weight Heart rate Respiratory rate Oxygen saturation Oxygen saturation in Arterial blood by Pulse oximetry Systolic blood pressure Diastolic blood pressure Provider Name and Address Organization Details Last Updated DateTime 4 165.1 cm 37.9 kg/m2 328673. 06 g 84 /min 16 /min 97 % 97 % 114 mm[Hg] 84 mm[Hg] Arlyn Stephens MA [facility] 4 11:37:49 Date Recorded Body height Body mass index (BMI) Body weight Heart rate Oxygen saturation Oxygen saturation in Arterial blood by Pulse oximetry Respiratory rate Systolic blood pressure Diastolic blood pressure Provider Name and Address Organization Details Last Updated DateTime 5 165.1 cm 38.5 kg/m2 945697. 2 g 98 /min 98 % 98 % 14 /min 126 mm[Hg] 90 mm[Hg] Arlyn Stephens MA [facility] 5 10:03:27 Date Recorded Systolic blood pressure Diastolic blood pressure Provider Name and Address Organization Details Last Updated DateTime 05/20/2024 110 mm[Hg] 80 mm[Hg] Dylan Kimbrough MD Attn: Accounting,[address] [place], [address], [facility] 05/20/2024 10:33:38 Date Recorded Body height Body mass index (BMI) Body weight Body temperature Oxygen saturation Oxygen saturation in Arterial blood by Pulse oximetry Heart rate Systolic blood pressure Diastolic blood pressure Provider Name and Address Organization Details Last Updated DateTime 5 165.1 cm 38.8 kg/m2 986057. 37 g 98.3 [degF] 98 % 98 % 76 /min 120 mm[Hg] 84 mm[Hg] Katheryn Richardson [facility] 5 15:44:44 Social History Question Answer Notes LastModified by Organizat ion Details LastModified Time Tobacco Smoking Status Never Smoker Jazmin Gay MA null, [facility] 08/09/2014 11:59:15 Do You Have An Advance Directive? No Information not available 08/06/2015 What Is Your Level Of Alcohol Consumption? Occasional Information not available 08/06/2015 Are You Blind Or Do You Have Difficulty Seeing? No Information not available 10/02/2023 Is Blood Transfusion Acceptable In An Emergency? Yes Information not available 08/06/2015 What Is Your Level Of Caffeine Consumption? Heavy Information not available 08/06/2015 How Much Tobacco Do You Chew? None Information not available 08/06/2015 In The 14 Days Before Symptom Onset, Have You Had Close Contact With A Laboratory-confir med COVID-19 While That Case Was Ill? No Information not available 07/02/2022 In The 14 Days Before Symptom Onset, Have You Had Close Contact With A Person Who Is Under Investigation For COVID-19 While That Person Was Ill? No Information not available 07/02/2022 Have You Been To An Area Known To Be High Risk For COVID-19? No Information not available 07/02/2022 Are You Currently Employed? Yes Information not available 08/06/2015 Are You Deaf Or Do You Have Serious Difficulty Hearing? No Information not available 10/02/2023 What Type Of Diet Are You Following? REGULAR Information not available 08/06/2015 Which Illicit Or Recreational Drugs Have You Used? None Information not available 08/06/2015 Do You Or Have You Ever Used E-cigarettes Or Vape? 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 With Others Information not available 08/06/2015 Do You Have A Medical Power Of Cardiac Cath Technician? No [email or web address] Information not available 04/30/2022 What Was The Date Of Your Most Recent Tobacco Screening? 06/23/2024 [email or web address] Information not available 06/23/2024 How Many Children Do You Have? 3 Information not available 08/06/2015 Performs Monthly Self-breast Exam? Yes Information no t available 08/06/2015 Do You Use Protection During Sex? Always Information not available 08/06/2015 What Is Your Relationship Status? Single Information not available 08/06/2015 Do You Use Your Seat Belt Or Car Seat Routinely? Yes Information not available 10/02/2023 Seat Belts Used Routinely Yes Information not available 08/06/2015 Are You Sexually Active? Yes Information not available 08/06/2015 Do You Have Smoke And Carbon Monoxide Detectors In Your Home? Yes Information not available 03/12/2022 Are You Passively Exposed To Smoke? No Information no t available 03/12/2022 Do You Or Have You Ever Used Smokeless Tobacco? Never Used Smokeless Tobacco Information not available 06/01/2019 How Much Tobacco Do You Smoke? No [email or web address] Information not available 06/25/2016 General Stress Level Low Information not available 08/06/2015 Do You Feel Stressed (tense, Restless, Nervous, Or Anxious, Or Unable To Sleep At Night)? [id number] Information not available 10/02/2023 Do You Use Any Illicit Or Recreational Drugs? Yes Information not available 10/15/2022 Do You Use Sunscreen Routinely? No Information not available 08/06/2015 Has Tobacco Cessation Counseling Been Provided? Yes Information not available 10/15/2022 On What Date Was Tobacco Cessation Counseling Provided? 10/02/2023 Information not available 10/02/2023 How Many Years Have You Smoked Tobacco? 0 [email or web address] Information not available 06/25/2016 Do You Or Have You Ever Used Any Other Forms Of Tobacco Or Nicotine? No Information not available 03/12/2022 Sex: Female Functional Status Question Answer Note LastModified by Organization D etails LastModified Time Are you able to care for yourself? Yes Information n ot available 10/02/2023 What is your exercise level? None Information not available 08/06/2015 Mental Status None recorded. Family History Relationship Description Onset Age of this Age Resolved Age Notes LastModified by Organization Details LastModified Time Maternal Grandmother Malignant tumor of breast mwasserman Not available 01/01 19:37:21 Paternal Grandfather Malignant tumor of lung mwasserman Not available 01/01 19:37:21 Paternal Grandfather Hypertensive disorder mwasserman Not available 01/01 19:37:21 Father Hypertensive disorder mwasserman Not available 01/01 19:37:21 Paternal Uncle Hypertensive disorder mwasserman Not available 01/01 19:37:21 Paternal Grandmother Hypertensive disorder mwasserman Not available 01/01 19:37:21 Medical History Condition Response Heart Problems N Other N High Blood Pressure N Breast Cancer N Thyroid Problems N Kidney or Bladder Problems N GI Problems N Lung Disease N Depression N Blood Clots N Acne N Breast Problem N Eating Disorder N Anemia Y Anesthesia Complications N Headaches/Migraines N Anxiety Disorder N Diabetes N Ovarian Cancer N Muscle, Joint, or Bone Problems N Blood Transfusions N Arthritis N Seizures/Epilepsy N Polyps N Infertility N Acid Reflux (GERD) Y Cancer N Stroke N Abuse/Domestic Violence N Asthma Y Endometriosis N High Cholesterol Y Hepatitis N Liver Disease N Heart Disease N Fibromyalgia N Pre-Eclampsia N Hypertension N Osteoporosis N Kidney Disease N Gynecological History Statement/Question Response Abnormal Pap N Date of Last Mammogram 06/04/2022 On BCP's at Conception? N STIs/STDs Y HPV Vaccine N Duration of Flow (days) 0 Age at Menarche 11 Current Control Method Hysterectom y Age at First Child 16 Frequency of Cycle (Q days) 0 Sexually Active? Y Menses Monthly N Date of Last Pap Smear 06/25/2016 Sexual Problems? N LMP Unknown Desired Control Method Hysterectom y Obstetrics History GPAL:G 7 P 3 0 4 3 Type Value Multiple Births 0 Full Term 3 Induced 2 Spontaneous 2 Premature 0 Living 3 Ectopics 0 Total 7 Immunizations Vaccine Type Date Status Note Provider Nam e and Address Organization Details Recorded Time COVID-19 vaccine, vector-nr, rS-Ad26, PF, 0.5 mL 1 completed Not Available [facility] 02/05/2023 14:16:16 Influenza, split virus, quadrivalent, preservative 2 completed Not Available [facility] 02/05/2023 14:16:16 Tdap 2 completed Not Available [facility] 02/05/2023 14:16:16 COVID-19, mRNA, LNP-S, bivalent, PF, 30 mcg/0.3 mL dose 2 completed Not Available [facility] 02/05/2023 14:16:16 Tdap 1 completed Not Available [facility] 02/05/2023 14:16:16 Influenza, split virus, quadrivalent, preservative 0 completed Arlyn Stephens MA [place], [place] - [facility] 06/08/2019 10:57:52 Influenza, split virus, trivalent, preservative 5 completed Not Available [facility] 05/14/2019 02:32:12 Past Encounters Encounter ID Performer Location Encounter Start Date Encounter Closed Date Diagnosis/Indication Diagnosis SNOMED-CT Code Diagnosis ICD10 Code Diagnosis Note [id number] Salazar Baca (ACTUARIAL ASSISTANT) [address] [place] [address] [id number] 08/09/2014 10:37:20 08/09/2014 13:43:07 Acute lower urinary tract infection [id number] Vaginitis 61335274 [id number] MD Keven Lewis (ACTUARIAL ASSISTANT) [address] [place] [address] [id number] 0 01/04/2015 15:50:21 01/04/2015 16:45:10 Vaginitis 34301866 Constipation 28151254 Vulvitis 69205187 [id number] Omayra Chris Baca (Adult Med) [address] [place] [address] [id number] [id number] 01/23/2015 15:04:43 01/23/2015 17:12:23 Pneumonia 435758999 34 y/o BF who was last seen in this office 04/12/2012 , she was in the ER with constipati on 01/16/2015. She was diagnosed with Pneumonia and constipati on. She should complete the course of levofloxac in and repeat a CXR in ~5-6 weeks to document resolution . Constipation 28561398 He r symptoms started after her robotic VIBHA for fibroids in July 2014 An appropriat e diet was discussed in detail. I think she should continue with daily fiber and read the printed informatio n about an appropriat e diet. GI for evaluation regarding the need for a colonoscop y. General ex amination of patient 609410214 Overweight 657160221 Anemia 602806472 History of SS trait Disorder of foot 242845997 This will be explored on her next visit [id number] Salazar Baca (ACTUARIAL ASSISTANT) [address] [place] [address] 15835-028 0 08/06/2015 11:06:51 08/06/2015 15:07:23 Vaginitis 70350544 N76.0 Bacterial vaginosis 4197 31212 N76.0 Pain of breast 88084679 N64.4 [id number] MD Keven Lewis (Adult Med) [address] [place] [address] [id number] 0 10/25/2015 15:28:29 10/25/2015 18:04:57 Acute urinary tract infection 759862760 N39.0 Constipation 74674930 K5 9.00 GI evaluation needed as she was previously referred. Disorder o f lipid metabolism 188672317 E78.9 Discussed, she apparently was not fasting when her labs were drawn, she was also started on Simvastati n by Dr. Amezcua, and she has not been compliant. I have discussed this with her in detail, she should start a low CHO, low saturated fat diet and repeat her labs in 6 weeks. Pneumonia 392219413 J18. 9 Follow up CXR still needed. [id number] BRYANNA Pickard (Adult Med) [address] [place] [address] 91014-236 0 12/14/2015 08:59:49 12/14/2015 10:05:04 Pruritus of vagina 37003671 L29.3 UA negative - discussed with patient that we will await Nuswab results Advised to drink 2-3 liters of water/day and stay away from sugary drinks Overweight 939799635 E66 .3 Advised to use imo.im al to track her calories Advised to exercise 30 minutes/da y 5 days/week [id number] Salazar Baca (ACTUARIAL ASSISTANT) [address] [place] [address] [id number] 0 01/02/2016 12:10:25 01/02/2016 19:38:16 Candidiasis of vagina 59785243 B37.3 KANIKA GLABRATA RESISTANT TO FLUCONAZOL E. SENSITIVE TO TERCONAZOL E Candidiasis 13732371 B37 .9 [id number] Salazar Baca (ACTUARIAL ASSISTANT) [address] [place] [address] [id number] 02/28/2016 10:06:45 02/28/2016 21:48:56 Vaginitis 07002843 N76.0 Constipation 74956437 K5 9.04 [id number] Salazar Baca (ACTUARIAL ASSISTANT) [address] [place] [address] [id number] 0 06/25/2016 15:53:53 06/26/2016 15:33:47 Candidiasis of vagina 37186660 B37.3 KANIKA GLABRATA RESISTANT TO FLUCONAZOL E. SENSITIVE TO TERCONAZOL E Vulvitis 21104409 N76.2 soap induced (excess scrubbing) [id number] Salazar Baca (ACTUARIAL ASSISTANT) [address] [place] [address] 53029-451 0 11/11/2016 14:40:11 11/11/2016 17:00:45 Bacterial vaginosis 952279080 N76.0 Obesity 763546671 E66.9 Candidiasis of vagina 72 787177 B37.3 KANIKA GLABRATA RESISTANT TO FLUCONAZOL E. SENSITIVE TO TERCONAZOL E Family karina nning surveillance 238860165 Z30.09 [id number] Salazar Amezcua [facility] (ACTUARIAL ASSISTANT) [address] [place] [address] [id number] 04/28/2017 11:16:46 04/28/2017 13:51:07 Vaginitis 26976333 N76.0 Vulvitis 90120968 N76.2 soap induced (excess scrubbing) Family karina nning surveillance 536758261 Z30.09 Exposure t o sexually transmissible disorder 842126989 Z20.2 [id number] Salazar Amezcua [facility] (ACTUARIAL ASSISTANT) [address] [place] [address] [id number] 0 06/15/2017 11:12:11 06/15/2017 13:36:47 Acute urinary tract infection 421119046 N39.0 Bacterial vaginosis 4197 81892 N76.0 Acute lowe r urinary tract infection 375074029 N39.0 Candidiasis of vagina 72 977114 B37.3 KANIKA GLABRATA RESISTANT TO FLUCONAZOL E. SENSITIVE TO TERCONAZOL E Family karina nning surveillance 004414734 Z30.09 Vaginitis 04516753 N76.0 [id number] Salazar Amezcua [facility] (ACTUARIAL ASSISTANT) [address] [place] [address] [id number] 0 09/24/2017 14:11:28 09/28/2017 12:24:02 Urinary tract infectious disease 27908754 N39.0 history of staph UTI 06/15/17 and +GBS Family karina nning surveillance 132888931 Z30.09 Acute lowe r urinary tract infection 118592055 N39.0 staph Urethritis 43041486 N34. 2 [id number] Salazar Baca (ACTUARIAL ASSISTANT) [address] [place] [address] [id number] 0 04/01/2018 16:18:42 04/02/2018 11:44:32 Vaginal discharge 885820025 N89.8 Bacterial vaginosis [address] reptococcus carrier 0166744813 103 Z22.985 [id number] Salazar Baca (ACTUARIAL ASSISTANT) [address] [place] [address] 84515-555 0 07/06/2018 15:40:12 07/06/2018 17:09:46 Recurrent bacterial infection 751080156 A49.[address] reptococcus carrier 1369878363 103 Z22.330 Exposure t o sexually transmissible disorder 755671894 Z20.2 Chronic vaginitis 206772 08 N76.1 recommend H2O2, vinegar and water, or betadine douche. H202 preferred method. History of total hysterectomy 299362120 Z90.710 still has ovaries but absent uterus and cervix [id number] JULIO Cantor (Adult Med) [address] [place] [address] [id number] 0 10/06/2018 11:02:33 10/07/2018 12:35:14 Dry cough 63313324 R05 Seasonal a llergic rhinitis 186208349 J30.2 [id number] CHET GALDAMEZ (ACTUARIAL ASSISTANT) [address] [place] [address] [id number] 0 11/16/2018 16:06:49 11/23/2018 16:14:03 Venereal disease screening 920811379 Z11.3 Gynecologi c examination 25070402 Z01.419 History of total hysterectomy 139531553 Z90.710 04/2013 Chronic vaginitis 024883 08 N76.1 Pt with vaginal itching x years. Has been off and on medication s for bacterial vaginosis and yeast infections . Pt reports h/o hysterecto my and bilateral salpingo-o ophorectom y and on speculum exam pt has dry mucosa and tiny tears with minor bleeding at the base of vagina. No discharge present. I suspect she has the early stages of atrophic vaginitis which is causing discomfort and itching. I discussed this patient and recommende d that she discontinu e all antibiotic s/antifung als and try OTC vaginal moisturize rs. I provided pt with a list of moisturize rs to try. I counseled pt on avoiding harsh soaps/douc hes/etc as this may be complicati ng the picture and causing further dryness. Pt voiced understand ing and is agreeable with plan. [id number] Salazar Baca (ACTUARIAL ASSISTANT) [address] [place] [address] 58226-382 0 06/01/2019 11:17:16 06/02/2019 10:27:28 Bacterial vaginosis 830713290 N76.0 hx of bv Exposure t o sexually transmissible disorder 252127840 Z20.2 Posterior rhinorrhea 758 76685 R09.82 Family karina nning surveillance 426212768 Z30.09 Premature ovarian failure 869951722 E28.39 [id number] MD Keven Lewis (Adult Med) [address] [place] [address] 89565-921 0 06/08/2019 10:04:25 06/08/2019 10:58:04 General examination of patient 714982719 Z00.01 Administra tion of influenza vaccine 25968778 Z23 Gastroesop hageal reflux disease 923120914 K21.9 Chronic cough 89997820 R 05 Asthma?All ergies? Weight gain 2751013 R63. 5 Cervical radiculopathy 57013399 M54.12 Screening for malignant neoplasm of breast 042980369 Z12.39 History of total hysterectomy 002291936 Z90.611 [id number] MD Keven Lewis (Adult Med) [address] [place] [address] 23832-232 0 07/21/2019 08:55:27 07/22/2019 11:24:21 Degeneration of thoracic intervertebral disc 03287624 M51.34 Discussed Degenerati on of cervical intervertebral disc 18944658 M50.30 Discussed [id number] MD Keven Lewis (Adult Med) [address] [place] [address] 00289-042 0 07/27/2019 12:21:01 2019 10:14:22 Chronic cough 24866207 R05 Asthma?All ergies?DAY D?Her CXR was normalSpir ometryPulm onologist to see [id number] MD Keven Lewis (Adult Med) [address] [place] [address] [id number] 0 08/15/2019 12:11:04 08/18/2019 10:42:57 Pulmonary function studies abnormal 320837696 R94.2 Mild obstructio n noted Pulmonolog y opinion is pending Follow up [id number] CHET NUNEZ (Adult Med) [address] [place] [address] [id number] 0 04/16/2020 08:46:43 04/17/2020 09:40:29 Vaginitis 25648471 N76.0 Reports vaginal irritation x 1 week. Noted new pink substance with wiping. Used bath and body works soap last week in which she noticed irritation after. Patient is sexually active with 1 partner and she last had intercours e 3 weeks ago. Hx of chronic vaginitis. Previously prescribed estradiol cream and terconazol e vaginal cream with relief. Currently taking HT chronic vaginitis. When seen by Malka a year ago minor tears were noted in the vaginal canal. Denies vaginal discharge, abnormal vaginal bleeding, dysuria, pelvic pain, fevers, chills.-Av oid intercours e fora week and d/c use of scented products-P rescribed terconazol e vaginal cream to cover for kanika glabrata- encouraged to machine operator picker refill on estrogen cream -F/u with in person visit if there is no improvemen t [id number] Salazar Baca (ACTUARIAL ASSISTANT) [address] [place] [address] [id number] 0 08/02/2020 12:15:25 08/03/2020 11:02:08 History of total hysterectomy 107304196 Z90.710 still has ovaries but absent uterus and cervix Chronic vaginitis 610885 08 N76.1 recommend H2O2, vinegar and water, or betadine douche. H202 preferred method. Exposure t o sexually transmissible disorder 885935443 Z20.2 Venereal d isease screening 131573493 Z11.3 Chronic id iopathic constipation 39539471 K59.04 Screening mammography 24 107827 Z12.31 [id number] CHET GALDAMEZ (ACTUARIAL ASSISTANT) [address] [place] [address] 67159-294 0 07/04/2021 15:55:38 07/22/2021 12:43:07 Acute vaginitis 55716233 N76.0 Patient reports internal vaginal irritation with spotting and odor x3 weeks. No new sexual partner or concern for STDs. PE demonstrat es thin white discharge within the vagina c/w bacterial infection. Swab taken and empiric abx started. Wear loose cotton clothing. Do not wear nylon or other fabric that holds body heat and moisture close to the skin. Do not scratch. Relieve itching with a cold pack or a cool bath. Do not wash your vaginal area more than once a day. Use plain water or a mild, unscented soap. Use condoms to prevent STIs. [id number] CHET GALDAMEZ (ACTUARIAL ASSISTANT) [address] [place] [address] 72158-836 0 08/06/2021 12:09:04 08/12/2021 12:57:53 Subacute and chronic vaginitis 230797775 N76.1 PE with mild white, nonodorous discharge; otherwise unremarkab le. Nuswab completed in clinic today will further treat pending results. Counseled pt to begin Metrogel 1 applicator every night for five nights. After completion of this, proceed to one applicator at bed time 2-3 times a week for 6 months. Chronic treatment indicated due to chronic vaginal irritation and pH imbalance with positive cultures for BV. Educated on benefits of boric acid suppositor ies in those with recurrent BV infections and pH imbalances . Educated on continued use of unscented soaps, loose cotton clothing, washing the vagina once a day with mild soap and water. Follow up in 6 mo. and prn. History of sexually transmitted disease 863837015 Z86.19 Positive for trich 07/05/21 for which she has completed treatment, partner as well. Retesting today due to persistent vaginal irritation . Safe sex practices discussed. [id number] CHET GALDAMEZ (ACTUARIAL ASSISTANT) [address] [place] [address] 27248-591 0 03/12/2022 16:35:07 03/19/2022 08:27:22 Malodorous urine 168665322 R82.998 Patient has malodorous urine without dysuria or other irritative voiding symptoms. On exam, there is no suprapubic tenderness or CVA tenderness . UA resulted with trace blood and leukocytes . Will send for culture and treat pending results. Recent A1c wnl. Advised pt to monitor diet and look for any correlatio n of certain foods with her symptoms and stay hydrated. Return as needed. Screening for malignant neoplasm of breast 381521788 Z12.31 Due for mammogram, ordered. Normal CBE Gynecologi c examination 73325976 Z01.419 Cervical cancer screening: na s/p TLHSTI screening: declined.D iet/exerci se: Counseled regarding importance of physical activity, healthy diet and appropriat e calcium intake.RTC in 1yr Administra tion of influenza vaccine 21232457 Z23 Annual flu shot administer ed today [id number] MD Keven Lewis (Adult Med) [address] [place] [address] 84020-609 0 03/17/2022 11:34:32 03/18/2022 12:09:46 Administration of diphtheria, pertussis, and tetanus vaccine 046677961 Z23 Cough variant asthma 409 828117 J45.991 Unintentio nal weight gain 3476930176 74459 R63.5 General ex amination of patient 352142980 Z00.01 Disorder o f lipid metabolism 975129491 E78.9 . Body mass index 30+ - obesity 354323169 Z68.37 Gastroesop hageal reflux disease 405151741 K21.9 Benign ess ential hypertension 4757271 I10 Pain in left foot 292393 3541 88391 M79.672 Apnea 5860130 R06.81 [id number] LUCIANO Kirby (Peds) [address] [place] [address] 77046-740 0 03/17/2022 13:56:32 03/18/2022 14:29:51 Administration of SARS-CoV-2 mRNA vaccine 7040667551 Z23 [id number] MD Keven Lewis (Adult Med) [address] [place] [address] 84975-419 0 04/08/2022 15:23:40 04/09/2022 12:22:43 Benign essential hypertension 4726070 I10 Start Amlodipine , detailed discussion on the side effects including but not limited to edema, dizziness and a headache.S he cannot tolerate HCTZ, I have told her to discuss her concern about the recall with her pharmacist . I doubt that she was given a recalled Lot number.She has asked for a diuretic, a loop diuretic is another option but I am not certain that she needs a drug that potent. Liver enzy mes level above reference range 515708526 R74.01 Dyslipidemia 711505026 E 78.5 Cough variant asthma 409 443205 J45.991 Hyperuricemia 49658707 E 79.0 Medication monitoring 39 7817381 Z51.81 [id number] KENNEDI CAAL DPM [facility] [address] [place] [address] 04/30/2022 15:43:16 05/02/2022 15:12:19 Acquired left hallux valgus 9393511159 89602 M20.12 Acquired r ight hallux valgus 2381601645 06509 M20.11 [id number] MD Keven Lewis (Adult Med) [address] [place] [address] 88952-020 0 05/02/2022 12:29:17 05/05/2022 10:56:55 Liver enzymes level above reference range 775980500 R74.01 The etiology is unclear, most of the parameters have shown some improvemen t.Recheck the labs todayCT and US were both done on her [facility] ER visit on 03/28/2022 with no gross abnormalit ies.Repeat the liver US and/or GI input if there is no improvemen t Benign ess ential hypertension 5898373 I10 Monitor the blood pressure at homeContin ue the current regimen OV 04/08/2022 Start Amlodipine , detailed discussion on the side effects including but not limited to edema, dizziness and a headache.S he cannot tolerate HCTZ, I have told her to discuss her concern about the recall with her pharmacist . I doubt that she was given a recalled Lot number.She has asked for a diuretic, a loop diuretic is another option but I am not certain that she needs a drug that potent. Disorder o f lipid metabolism 723895810 E78.9 Discussed Body mass index 30+ - obesity 478761149 Z68.37 Obesity 951889056 E66.9 [id number] Dylan Kimbrough MD [facility] (Adult Med) [address] [place] [address] 05/13/2022 15:41:49 05/15/2022 09:02:44 Liver enzymes level above reference range 979422369 R74.01 The etiology is unclear, most of the parameters have shown some improvemen t except her GGT.CT and US were both done on her [facility] ER visit on 03/28/2022 with no gross abnormalit ies.A repeat liver US and the opinion of the gastroente rologist are both pending. Benign ess ential hypertension 6735982 I10 StableCont inue the current regimen Body mass index 30+ - obesity 040833296 Z68.37 Obesity 228735820 E66.9 Anxiety 85546047 F41.9 Pre-surger y evaluation 411567997 Z01.818 Low risk SARS-CoV-2 antigen vaccine declined 0771997980 Z28.21 [id number] KENNEDI CAAL DPM [facility] [address] [place] [address] 06/11/2022 10:39:34 06/11/2022 15:16:35 Follow-up visit 492862323 Z09 bunion surgery left foot [id number] KENNEDI CAAL DPM [facility] [address] [place] [address] 06/18/2022 10:31:38 06/20/2022 10:07:42 Follow-up visit 147108630 Z09 bunion surgery left foot [id number] KENNEDI CAAL DPM [facility] [address] [place] [address] 07/02/2022 10:25:52 07/11/2022 14:34:06 Follow-up visit 668514302 Z09 bunion surgery left foot [id number] [facility] [address] [place] [address] 07/16/2022 10:34:40 07/16/2022 13:17:55 Follow-up visit 039625749 Z09 bunion surgery left foot [id number] KENNEDI CAAL [facility] [place] [address] 08/06/2022 10:33:36 08/20/2022 11:55:38 Follow-up visit 634928898 ZNathalie bunion surgery left foot [id number] KENNEDI CAAL [facility] [place] [address] 09/03/2022 09:51:35 09/04/2022 15:06:58 Follow-up visit [id number] ZNathalie bunion surgery left foot [id number] Dylan Kimbrough MD [facility] (Adult Med) [address] [place] [address] 10/06/2022 11:03:54 10/07/2022 11:06:26 Liver enzymes level above reference range 617793463 R74.01 Seen by GI, the impression is that it is consistent with HECTOR. OV 05/13/2022T he etiology is unclear, most of the parameters have shown some improvemen t except her GGT.CT and US were both done on her [facility] ER visit on 03/28/2022 with no gross abnormalit ies.A repeat liver US and the opinion of the gastroente rologist are both pending. Benign ess ential hypertension 3676478 I10 Suboptimal Continue Amlodipine 2.5 mgRestart HCTZ at a lower dose, 12.5 mg Body mass index 30+ - obesity 433943776 Z68.37 Obesity 159482642 E66.9 Edema of l ower extremity 490875689 R60.0 Multifacto rial: Weight?, NSAID? and less likely her low dose CCB.LabsUS Disorder o f lipid metabolism 415956267 E78.9 Discussed Bloating symptom 6131773 00 R14.0 [id number] CHET GALDAMEZ (ACTUARIAL ASSISTANT) [address] [place] [address]724 0 10/15/2022 15:02:39 10/26/2022 17:42:17 Acute vaginitis 25264090 N76.0 Symptoms concerning for yeast infection, will treat empiricall y. Confirm with nuswab. [id number] KENNEDI CAAL DPM [facility] [address] [place] [address] 12/31/2022 10:00:17 01/02/2023 14:27:45 Follow-up visit 998207393 Z09 bunion surgery left foot Acquired r ight hallux valgus 5975398995 73992 M20.11 [id number] MD Keven Lewis (Adult Med) [address] [place] [address] 12084-225 0 02/26/2023 10:59:08 03/03/2023 10:08:36 Disorder of lipid metabolism 474653908 E78.9 Discussed At [facility] ed risk for cardiovascular event 058467706 Z91.89 1.8% Pre-surger y evaluation 774756254 Z01.818 Low risk, unless her lab results are abnormalNL EKG and CXR Obstructiv e sleep apnea syndrome 67294061 G47.33 Benign ess ential hypertension 3931392 I10 Stable.Con tinue Amlodipine 2.5 mg and HCTZ 12.5 mg Steatosis of liver 1007 K76.0 Influenza vaccination declined 847838253 Z28.21 [id number] KENNEDI CAAL DPM [facility] [address] [place] [address] 03/18/2023 11:37:42 03/26/2023 09:43:40 Postoperative visit 685486394 Z09 [id number] KENNEDI CAAL DPM [facility] [address] [place] [address] 03/25/2023 11:31:22 03/26/2023 08:24:18 Postoperative visit 977360682 Z09 [id number] KENNEDI BRARDERIC MOCTEZUMA [facility] [address] [place] [address] 04/08/2023 11:40:07 04/09/2023 12:16:00 Postoperative visit 886001302 Z09 [id number] KENNEDI CAALAAMIRAraseli [facility] [address] [place] [address] 04/29/2023 11:22:38 05/19/2023 13:27:34 Postoperative visit 853636128 Z09 [id number] BRYANNA CHEN (Adult Med) [address] [place] [address] 05/20/2023 14:42:55 05/21/2023 16:08:59 Depression screening 263125193 Z13.31 PHQ9- Positive (14 out of 27) [facility] screening 444539665 Z13.39 GAD7- Positive (15 out of 21) Body mass index 30+ - obesity 613112283 Z68.38 BMI 38.6 Screening mammography 24 648623 Z12.31 Pt to call and schedule Mammogram, will call with results Increased frequency of urination 395247704 R35.0 Vaginal odor 901990170 N 89.8 Take your antibiotic s as directed. Do not stop taking them just because you feel better. You need to take the full course of antibiotic s. Do not eat or drink anything that contains alcohol if you are taking metronidaz ole or tinidazole . Keep using your medicine if you start your period. Use pads instead of tampons while using a vaginal cream or suppositor y. Tampons can absorb the medicine. Wear loose cotton clothing. Do not wear nylon and other materials that hold body heat and moisture close to the skin. Do not scratch. Relieve itching with a cold pack or a cool bath. Do not wash your vaginal area more than once a day. Use plain water or a mild, unscented soap. Do not douche. 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 Doing 30 minutes of exercise every day is good for your body and mind. Start slowly if you find it difficult to get started. If you already exercise, continue doing so. Plan something nice for yourself every day. Include activities you have enjoyed in the past. Get enough sleep. Eat a balanced diet. If you are not hungry, eat small snacks instead of large meals. Do not drink alcohol, use illegal drugs, or take medication s that your doctor has not prescribed . They may interfere with your treatment. Spend time with family and friends. It may be helpful to talk openly about your depression with people you trust. Take your medication s exactly as prescribed . Don't make important life decisions while you are depressed. Depression can change the way you think. You will be able to make better decisions when you feel better. Think positively . Challenge negative thoughts with statements like I am hopeful ; Things will get better ; and I can ask for the help I need. Write these statements down and read them often, even if you don't believe them yet. Be patient with yourself. It took time for your depression to develop and it will take time for your symptoms to improve. Don't assume too much or be too hard on yourself. Learn everything you can about depression from written and online materials. Check out behavioral health classes to learn more about how to deal with depression . Keep the numbers for these national suicide hotlines: 1-372-665- TALK (0-690-665 -2573) and 2-147-SUIC JEROMY (9-168-894 -7804). If you or someone you know talks about suicide or feels hopeless, seek help immediatel y. -Will start on sertraline 25mg-Patie nt denies need for counseling at this time-RTC 6 weeks [id number] BRYANNA CHEN (Adult Med) [address] [place] [address] 07/15/2023 10:38:39 07/16/2023 14:40:19 Candidiasis of vagina 86480859 B37.31 Kanika Glabrata- Test of [place] call patient with results Body mass index 30+ - obesity 067865370 Z68.37 BMI 37 Advised decreased portion sizes, good food choices, limited eating out or fast food and eliminate soda and juice from diet. Advised physical activity daily and offered encouragem ent to continue with positive changes made so far. [id number] MD Keven Lewis (Adult Med) [address] [place] [phone] 07/14/2023 12:31:03 07/14/2023 20:50:03 Disorder of lipid metabolism 942941870 E78.9 Discussed, her elevated LFTS prevent the initiation of a statin at this time.Start ZetiaReche ck labs Benign ess ential hypertension 7695335 I10 Continue Amlodipine 2.5 mgIncrease HCTZ to 25 mg as her DBP is over 80 and she has mild LE edema Steatosis of liver 1007 K76.0 Body mass index 30+ - obesity 690919154 Z68.37 Tachycardia 1379786 R00. 0 [id number] Eloy Marquis MD Keven (Adult Med) [address] [place] [phone] 10/02/2023 09:56:05 10/02/2023 10:39:00 Essential hypertension 05648200 I10 Hyperlipidemia 43675775 E78.5 Asthma 100569935 J45.90 9 Serum iron below reference range 039901371 R79.0 [id number] Marino Cain MD [facility] (Adult Med) [address] [place] [phone] 10/08/2023 12:22:30 10/22/2023 15:08:01 Atrophic vulva 062722137 N90.5 Start estradiol 2 times per week Vaginal discharge 733668 006 N89.8 Take your antibiotic s as directed. Do not stop taking them just because you feel better. You need to take the full course of antibiotic s. Do not eat or drink anything that contains alcohol if you are taking metronidaz ole or tinidazole . Keep using your medicine if you start your period. Use pads instead of tampons while using a vaginal cream or suppositor y. Tampons can absorb the medicine. Wear loose cotton clothing. Do not wear nylon and other materials that hold body heat and moisture close to the skin. Do not scratch. Relieve itching with a cold pack or a cool bath. Do not wash your vaginal area more than once a day. Use plain water or a mild, unscented soap. Do not douche. Start metronidaz ole 500mg BID Morbid obesity 450963037 E66.01 BMI 36.7 Advised decreased portion sizes, good food choices, limited eating out or fast food and eliminate soda and juice from diet. Advised physical activity daily and offered encouragem ent to continue with positive changes made so far. [id number] MD Keven Jefferson (Adult Med) [address] [place] [phone] 01/07/2024 10:45:52 01/08/2024 11:03:50 Obesity 332260099 E66.8 BMI 37.2 Mass of right breast [id number] [id number] 7178459 N63.10 CBE doneSmall mass palpated at 6 o'clock position, measuring about 1cm in diameter. Minimal tenderness on palpation. No family h/o breast cancer Vaginal discharge 641576 006 N89.8 Take your antibiotic s as directed. Do not stop taking them just because you feel better. You need to take the full course of antibiotic s. Do not eat or drink anything that contains alcohol if you are taking metronidaz ole or tinidazole . Keep using your medicine if you start your period. Use pads instead of tampons while using a vaginal cream or suppositor y. Tampons can absorb the medicine. Wear loose cotton clothing. Do not wear nylon and other materials that hold body heat and moisture close to the skin. Do not scratch. Relieve itching with a cold pack or a cool bath. Do not wash your vaginal area more than once a day. Use plain water or a mild, unscented soap. Do not douche. 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 On Zetia OV 07/14/2023 iscussed, her elevated LFTS prevent the initiation of a statin at this time.Start ZetiaReche ck labs [id number] MD Keven Lewis (Adult Med) [address] [place] [address] 05/20/2024 09:44:36 05/24/2024 14:59:20 Disorder of lipid metabolism 511465435 E78.9 Labs Previous OVOn Zetia OV 07/14/2023 iscussed, her elevated LFTS prevent the initiation of a statin at this time.Start ZetiaReche ck labs Benign ess ential hypertension 4879938 I10 Continue Amlodipine 2.5 mg HS and HCTZ 25 mg Body mass index 30+ - obesity 172267174 Z68.37 [id number] BRYANNA CHEN (Adult Med) [address] [place] [phone] 06/23/2024 15:31:55 06/24/2024 11:54:24 Vaginal discharge 831238017 N89.8 Take your antibiotic s as directed. Do not stop taking them just because you feel better. You need to take the full course of antibiotic s. Do not eat or drink anything that contains alcohol if you are taking metronidaz ole or tinidazole . Keep using your medicine if you start your period. Use pads instead of tampons while using a vaginal cream or suppositor y. Tampons can absorb the medicine. Wear loose cotton clothing. Do not wear nylon and other materials that hold body heat and moisture close to the skin. Do not scratch. Relieve itching with a cold pack or a cool bath. Do not wash your vaginal area more than once a day. Use plain water or a mild, unscented soap. Do not douche. Start metronidaz ole gel x 5 nightsNusw ab sent Urinary symptoms 8073399 08 R39.9 UA dip negativeUr quin culture sentIncrea se water intake Obesity 911136147 E66.9 Health Concerns Section Related Observation LastModified by Organization Harish riddle LastModified Time None Recorded Concern Status LastModified by Organization Details LastModified Time None Recorded Advance Directives Directive N: Payers Encounter Date Sequence Insurance Name Policy Number Policy Steele Covered Member ID Steele Member ID Guarantor Name 10/08/2023 1 [facility] [employer]y [id number] Blue Ley 01/07/2024 1 [employer]y [id number] Blue Ley 02/19/2024 1 [facility] [id number] Blue Ley 05/20/2024 1 MED[place]: [facility] [place] [facility] Blue Ley [id number] Blue Ley 06/23/2024 1 MEDICAID-[place]: [facility] PUBLIC [facility] Blue Ley [id number] Blue Ley Notes Date Note Type Note Provider Name and Address Organization Details Recorded Time 10/08/2023 text/html 43 y/o AA F here c/o vaginal discharge and vaginal dryness. Pt states she is sexually active with one new sexual partner. Pt denies burning with urination. Marino Cain MD Attn: Accounting, [address] [place], [address], [facility] 10/19/2023 19:58:49 01/07/2024 text/html 43 y/o AA F here c/o breast pain/mass on R side. Pt states she felt pain to R breast about 1 week ago and she felt a small mass to lower breast. She denies any skin changes or nipple discharge. Denies any Fhx breast cancer.Pt is also c/o vaginal discharge. States she does not think that her BV completely went away from before. Marino Cain MD Attn: Accounting, [address] [place], [address], [facility] 01/07/2024 22:56:19 02/19/2024 text/html Hypertension F/UReported bypatient.Associat ed Symptoms:no dizziness; no lightheadedness; no chest pain; no shortness of breath; no palpitations; no edema; no calf pain with exertion Lifestyle:regular exercise; limiting/avoiding salt Medications:taking medications as directed; no side effects from medication Trying to get my health together My hands get numb I don't feel like I go on a regular She complains of waking up with numbness in her hands as as well as intermittent numbness in her feet. Her chronic constipation still persists and she never saw GI as referred on 01/23/2015. Dylan Kimbrough MD Attn: Accounting, [address] [place], [address], [facility] 02/19/2024 13:28:29 05/20/2024 text/html Hypertension F/UReported bypatient.Associat ed Symptoms:no dizziness; no lightheadedness; no chest pain; no shortness of breath; no palpitations; no edema; no calf pain with exertion Lifestyle:regular exercise; limiting/avoiding salt Medications:taking medications as directed; no side effects from medication; checks blood pressure at home, range: (At home 155/88, Really high at home ) My insurance had collapsed, I got appointments with every body Ms Ley had no coverage and she was also not taking her Amlodipine and HCTZ. She developed dizziness, a dry mouth and was concerned as her blood pressure was elevated. She is now back on her regimen and reports blood pressure readings that vary. Dylan Kimbrough MD Attn: Accounting[address] [place], [address], [facility] 05/20/2024 14:08:48 06/23/2024 text/html 43-year-old female here complaining of strong odor of urine. Pt states she went to urgent care and was told everything was negative. Pt denies vaginal discharge but is sexually active with 1 M partner and is not monogamous and would like pelvic exam. EZEQUIEL CUNNINGHAM PA-C Attn: Accounting[address] [place], [address], [facility] 06/23/2024 16:05:40 OBGyn Episode Ob Episode Information Episode Created Date Number of Fetuses Patient Bloodtype Patient rh Status Prepregnancy Weight lbs Domestic Partner Domestic Partner Phone Father Name Regulatory Compliance Director Status 12/14/19 24 1 DELETED Fetus Data First Name Last Name Admitted to NICU Weight (g) Sex Living Outcome Pediatric Complications Fetus ID Race Codes Race Delivery Type [id number] William Calculation Initial William Date Initial Exam Date Initial Exam Provider Initial Ultrasound Date Last Menstrual Period Date Ultra Sound Weeks Gestation 12/14/2023 0 Eighteen To Twenty Week William Update Ultra Sound Date Fundal Height At Umbil Quickening Date Ultra Sound Latest Weeks Gestation Final William Confirmed By Final William Confirmed Date Final William Date Ultra Sound Latest Days Gestation 0 0 Menstrual History Last Menstrual Date Menses Monthly On Bcp Conception Prior Menses Frequency Hcg Plus Date Menarche Onset Age Delivery Information Delivery Date Delivery Type Labor Anesthesia Weeks Gestation Incision Type Labor Labor Length Hrs Delivered By Post Complications Tubal Sterilization Discharge Date Comments Discharge Information Feeding Method Contraceptive Method Maternal HG B and HCT Levels Ob Episode Information Episode Created Date Number of Fetuses Patient Bloodtype Patient rh Status Prepregnancy Weight lbs Domestic Partner Domestic Partner Phone Father Name Regulatory Compliance Director Status 08/06/19 16 1 CLOSED Fetus Data First Name Last Name Admitted to NICU Weight (g) Sex Living Outcome Pediatric Complications Fetus ID Race Codes Race Delivery Type 2863.29 95 M Full Term [id number] Standard Vaginal Delivery William Calculation Initial William Date Initial Exam Date Initial Exam Provider Initial Ultrasound Date Last Menstrual Period Date Ultra Sound Weeks Gestation 0 Eighteen To Twenty Week William Update Ultra Sound Date Fundal Height At Umbil Quickening Date Ultra Sound Latest Weeks Gestation Final William Confirmed By Final William Confirmed Date Final William Date Ultra Sound Latest Days Gestation 0 0 Menstrual History Last Menstrual Date Menses Monthly On Bcp Conception Prior Menses Frequency Hcg Plus Date Menarche Onset Age Delivery Information Delivery Date Delivery Type Labor Anesthesia Weeks Gestation Incision Type Labor Labor Length Hrs Delivered By Post Complications Tubal Sterilization Discharge Date Comments 9 None 40 true Percival Discharge Information Feeding Method Contraceptive Method Maternal HG B and HCT Levels Ob Episode Information Episode Created Date Number of Fetuses Patient Bloodtype Patient rh Status Prepregnancy Weight lbs Domestic Partner Domestic Partner Phone Father Name Regulatory Compliance Director Status 08/06/19 16 1 CLOSED Fetus Data First Name Last Name Admitted to NICU Weight (g) Sex Living Outcome Pediatric Complications Fetus ID Race Codes Race Delivery Type 2891.64 9 F Full Term [id number] Standard Vaginal Delivery William Calculation Initial William Date Initial Exam Date Initial Exam Provider Initial Ultrasound Date Last Menstrual Period Date Ultra Sound Weeks Gestation 0 Eighteen To Twenty Week William Update Ultra Sound Date Fundal Height At Umbil Quickening Date Ultra Sound Latest Weeks Gestation Final William Confirmed By Final William Confirmed Date Final William Date Ultra Sound Latest Days Gestation 0 0 Menstrual History Last Menstrual Date Menses Monthly On Bcp Conception Prior Menses Frequency Hcg Plus Date Menarche Onset Age Delivery Information Delivery Date Delivery Type Labor Anesthesia Weeks Gestation Incision Type Labor Labor Length Hrs Delivered By Post Complications Tubal Sterilization Discharge Date Comments 8 None 40 false Marcasis a Discharge Information Feeding Method Contraceptive Method Maternal HG B and HCT Levels Ob Episode Information Episode Created Date Number of Fetuses Patient Bloodtype Patient rh Status Prepregnancy Weight lbs Domestic Partner Domestic Partner Phone Father Name Regulatory Compliance Director Status 08/06/19 16 1 CLOSED Fetus Data First Name Last Name Admitted to NICU Weight (g) Sex Living Outcome Pediatric Complications Fetus ID Race Codes Race Delivery Type 3203.49 35 F Full Term [id number] Standard Vaginal Delivery William Calculation Initial William Date Initial Exam Date Initial Exam Provider Initial Ultrasound Date Last Menstrual Period Date Ultra Sound Weeks Gestation 0 Eighteen To Twenty Week William Update Ultra Sound Date Fundal Height At Umbil Quickening Date Ultra Sound Latest Weeks Gestation Final William Confirmed By Final William Confirmed Date Final William Date Ultra Sound Latest Days Gestation 0 0 Menstrual History Last Menstrual Date Menses Monthly On Bcp Conception Prior Menses Frequency Hcg Plus Date Menarche Onset Age Delivery Information Delivery Date Delivery Type Labor Anesthesia Weeks Gestation Incision Type Labor Labor Length Hrs Delivered By Post Complications Tubal Sterilization Discharge Date Comments 3 None 40 false Latorria Discharge Information Feeding Method Contraceptive Method Maternal HG B and HCT Levels
--- OUTSIDE RECORDS SUMMARY | 2024-07-06 10:17 | XMS_ITS | Clinical Summary ---
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 Gender Identity Not on file Sexual Orientation Not on file Plan of Treatment Health Maintenance Due Date Last Done Comments Hepatitis C Virus (HCV) Screening 1979 Hepatitis B Immunization (1 of 3 - 19+ 3-dose series) 07/28/1998 Pap Smear 07/28/2000 Cervical Cancer Screening (CCS) 07/28/2009 HPV/Cotest 07/28/2009 Discussion re Starting/Frequ ency of Mammograms 2019 Influenza Immunization (#1) 2023 06/08/2019 SARS-COV-2 Immunization ( season) 2023 08/03/2020 Respiratory Syncytial Virus (RSV) Immunization (Adult) (1 - 1-dose 75+ series) 07/28/2054 DTaP/Tdap/Td Immunization Discontinued 05/24/2010 TdaP Immunization Completed 05/24/2010 Meningococcal Immunization (ACWY) Aged Out No longer eligible based on patient's age to complete this topic Pneumococcal Immunization Combined Aged Out No longer eligible b ased on patient's age to complete this topic Rotavirus Immunization Aged Out No lo nger eligible based on patient's age to complete this topic
--- OUTSIDE RECORDS SUMMARY | 2024-07-06 10:17 | XMS_ITS | CONTINUITY OF CARE DOCUMENT ---
Author Name charu box Address Unknown Organization [facility] Address [address] [place] [address] Phone [phone] Care Team Providers Care Production Statistical Clerk Name Role Phone Diomedes Alves MD Unavailable LONG AR[place]A MD Unavailable LONG AR[place]A MD Unavailable [phone] [employer]ANCE [employer] Payer name Policy type / Coverage type [employer] party ID [employer] Other [id number]
--- NOTE | 2024-07-06 11:00 | NEURO_ITS ---
Impression: # Complains of numbness of hands. Non-diabetic. ? # Normal Nerve Conduction Study. ? # No Carpal Tunnel Syndrome or ulnar neuropathy. ? # Normal needle/EMG exam. ? # Clinical correlation recommended. Nerve Conduction Studies Anti Sensory Summary Table ?Stim Site NR Peak (ms) P-T Amp (?V) Site1 Site2 Delta-P (ms) Dist (cm) Andres (m/s) Left Median Anti Sensory (2-3nd Digit) Wrist ? 3.7 17.4 Wrist 2-3nd Digit 3.7 14.0 38 Wrist ? 3.7 25.2 Wrist 2-3nd Digit 3.7 14.0 38 Right Median Anti Sensory (2-3nd Digit) Wrist ? 2.7 16.8 Wrist 2-3nd Digit 2.7 14.0 52 Wrist ? 2.6 46.2 Wrist 2-3nd Digit 2.7 14.0 52 Left Radial Anti Sensory (Base 1st Digit) Wrist ? 1.9 45.4 Wrist Base 1st Digit 1.9 0.0 Right Radial Anti Sensory (Base 1st Digit) Wrist ? 2.2 30.0 Wrist Base 1st Digit 2.2 0.0 Left Ulnar Anti Sensory (5th Digit) Wrist ? 2.3 65.6 Wrist 5th Digit 2.3 14.0 61 Right Ulnar Anti Sensory (5th Digit) Wrist ? 2.7 40.3 Wrist 5th Digit 2.7 14.0 52 Motor Summary Table ?Stim Site NR Onset (ms) O-P Amp (mV) Site1 Site2 Delta-0 (ms) Dist (cm) Andres (m/s) Left Median Motor (Abd Poll Brev) Wrist ? 3.7 6.1 Elbow Wrist 4.7 30.0 64 Elbow ? 8.4 5.8 Right Median Motor (Abd Poll Brev) Wrist ? 2.8 4.6 Elbow Wrist 5.2 30.0 58 Elbow ? 8.0 3.8 Left Ulnar Motor (Abd Dig Minimi) Wrist ? 2.5 7.2 A Elbow Wrist 5.2 31.0 60 A Elbow ? 7.7 6.3 Right Ulnar Motor (Abd Dig Minimi) Wrist ? 2.0 6.7 A Elbow Wrist 5.0 30.0 60 A Elbow ? 7.0 5.0 F Wave Studies ?NR F-Lat (ms) L-R F-Lat (ms) Left Median (Mrkrs) (Abd Poll Brev) ? 28.52 1.32 Right Median (Mrkrs) (Abd Poll Brev) ? 27.20 1.32 Left Ulnar (Mrkrs) (Abd Dig Min) ? 27.97 0.70 Right Ulnar (Mrkrs) (Abd Dig Min) ? 27.27 0.70 EMG ?Side Muscle Nerve Root Ins Act Fibs Amp Dur Recrt Comment Right 1stDorInt Ulnar C8-T1 Nml Nml Nml Nml Nml Right Ext Indicis Radial (Post Int) C7-8 Nml Nml Nml Nml Nml Right Ext Digitorum Radial (Post Int) C7-8 Nml Nml Nml Nml Nml Right BrachioRad Radial C5-6 Nml Nml Nml Nml Nml Right PronatorTeres Median C6-7 Nml Nml Nml Nml Nml Right Abd Poll Brev Median C8-T1 Nml Nml Nml Nml Nml Right ABD Dig Min Ulnar C8-T1 Nml Nml Nml Nml Nml Left 1stDorInt Ulnar C8-T1 Nml Nml Nml Nml Nml Left Ext Indicis Radial (Post Int) C7-8 Nml Nml Nml Nml Nml Left Ext Digitorum Radial (Post Int) C7-8 Nml Nml Nml Nml Nml Left BrachioRad Radial C5-6 Nml Nml Nml Nml Nml Left PronatorTeres Median C6-7 Nml Nml Nml Nml Nml Left Abd Poll Brev Median C8-T1 Nml Nml Nml Nml Nml Left ABD Dig Min Ulnar C8-T1 Nml Nml Nml Nml Nml MTDD
== END 2024-07-06 09:25 | disposition home or self-care (01) ==
PROVIDERS: Visit Provider Internal Medicine Infectious Disease
DX: G62.9 Polyneuropathy, unspecified (principal)
CPT/HCPCS: 95886; 95911